=== PATIENT | female | born 1960 | race Caucasian/White ===

== ENCOUNTER 2019-08-23 14:19 | Outpatient (CLI) | payer OTHER, SELFPAY ==
[2019-08-23 15:13] LABS: Basophils Percent Auto 0.7 % (0.2-1.2); Eosinophils Absolute Auto 0.1 K/mm3 (0-0.3); Eosinophils Percent Auto 0.9 % (0-4.4); Hematocrit 38.1 % (37.0-47.0); Hemoglobin 12.3 g/dL (12.0-15.0); Immature Granulocyte Absolute 0.01 K/mm3 (0.00-0.031); Immature Granulocyte Percent A 0.2 % (0-0.5); Lymphocytes Absolute Auto 1.62 K/mm3 (0.9-3.2); Lymphocytes Percent Auto 30.1 % (18.3-44.2); Mean Corpuscular HGB Conc 32.3 g/dl (32-36); Mean Corpuscular Hemoglobin 30.4 pg (26-34); Mean Corpuscular Volume 94.3 fl (80-100); Mean Platelet Volume 10.9 fl (7.4-10.4); Monocytes Absolute Auto 0.6 K/mm3 (0.1-0.6); Monocytes Percent Auto 11.7 % (2.6-8.5); Neutrophils Percent Auto 56.4 % (45.5-73.1); Platelet Count Result 232 k/mm3 (150-375); Red Blood Count 4.04 M/mm3 (4.2-5.4); Red Cell Distribution Width 12.6 % (11.5-14.5); White Blood Count 5.4 K/mm3 (4.5-10.0)
[2019-08-23 15:30] LABS: Alanine Aminotransferase 16 U/L (4-35); Albumin Level 4.3 g/dL (3.5-5.1); Alkaline Phosphatase 58 U/L (38-126); Aspartate Amino Transferase 22 U/L (14-36); Bilirubin,Total 0.4 mg/dL (0.2-1.3); Blood Urea Nitrogen 8 mg/dL (7-17); Calcium 8.8 mg/dL (8.4-10.2); Carbon Dioxide 29 mmol/L (22-30); Chloride 99 mmol/L (98-107); Cholesterol 165 mg/dL (0-200); Estimated Glomerular Filt Rate > 60; Glucose 81 mg/dL (65-105); HDL Direct 84 mg/dL; Potassium 3.7 mmol/L (3.4-5.0); Sodium 135 mmol/L (137-145); Triglycerides 53 mg/dL (<150)
[2019-08-23 15:41] LABS: LDL Cholesterol Direct 64 mg/dL
[2019-08-23 16:23] LABS: Vitamin D 25 Hydroxy 37.5 ng/mL
[2019-08-23 16:32] LABS: Folic Acid 10.3 ng/mL (2.76->20)
== END 2019-08-23 14:20 | disposition home or self-care (01) ==
PROVIDERS: PCP Family Medicine; Visit Provider Nurse Practitioner
DX: R53.83 Other fatigue (principal); I10 Essential (primary) hypertension; E53.8 Deficiency of other specified B group vitamins; E78.5 Hyperlipidemia, unspecified; E55.9 Vitamin D deficiency, unspecified
CPT/HCPCS: 36415; 80053; 80061; 82306; 82607; 82746; 85025

== ENCOUNTER 2019-09-11 07:56 | Outpatient (CLI) | payer OTHER, SELFPAY ==
--- NOTE | ~2019-09-11 | DEXA_ITS ---
Bone Density Report Name: Amanda Becerra Age: 59 Sex: Female Ethnicity: White Date of : 1960 Indication: postmenopausal osteoporosis; monitoring treatment; height loss; cancer; hysterectomy; Referring Provider: Kristina Rivera Study: Bone densitometry was performed. Exam Date: September 11, 2019 Accession number: [id number] Bone Density: Region BMD T-score Z-score Classification AP Spine (L1-L4) 0.651 -3.6 -2.2 Osteoporosis Femoral Neck (Left) 0.603 -2.2 -1.0 Osteopenia Total Hip (Left) 0.809 -1.1 -0.2 Osteopenia Total Hip Bilateral Avg 0.784 -1.3 -0.4 Osteopenia Femoral Neck (Right) 0.551 -2.7 -1.4 Osteoporosis Total Hip (Right) 0.757 -1.5 -0.6 Osteopenia World Health Organization criteria for BMD impression classify patients as: Normal (T-score at or above -1.0), Osteopenia (T-score between -1.0 and -2.5), or Osteoporosis (T-score at or below -2.5). 10-year Fracture Risk: FRAX not reported because: Some T-score for Spine Total or Hip Total or Femoral Neck at or below -2.5 Treated for osteoporosis Previous Exams: Region Exam Age BMD T-score BMD Change BMD Change Date g/cm2 vs Baseline vs Previous AP Spine(L1-L4) 09/11/2019 59 0.651 -3.6 -0.059(-8.2%)* -0.059(-8.2%)* 07/15/2016 56 0.710 -3.1 Total Hip(Left) 09/11/2019 59 0.809 -1.1 -0.028(-3.4%)* -0.028(-3.4%)* 07/15/2016 56 0.837 -0.9 Total Hip(Right) 09/11/2019 59 0.757 -1.5 -0.043(-5.4%)* -0.043(-5.4%)* 07/15/2016 56 0.800 -1.2 *Denotes significance at 95% confidence level, LSC for AP Spine = 0.022 g/cm2, LSC for Total Hip = 0.027 g/cm2 Clinical Information Provided by Patient: Is being treated for osteoporosis Has used the following medications: Fosamax (i.e. alendronate), Vitamin D, Calcium Has the following medical conditions: Cancer, Hysterectomy Patient maximum height was 64.0 Menopause Age: 43 Does not regularly consume dairy products Drinks caffeinated beverages Onset of menses at age 12 Number of children 3 Impression: The patient has osteoporosis, based on the Total Spine T-score. The BMD for the AP Spine(L1-L4) decreased, changing by -8.2% since the last DXA exam. The BMD for the Total Hip(Left) decreased, changing by -3.4% since the last DXA exam. The BMD for the Total Hip(Right) decreased, changing by -5.4% since the last DXA exam. Discussion: SIGNIFICANT BONE LOSS OBSERVED. Adherence to therapy (including calcium and vitamin D intake) should be assessed. If compli
--- NOTE | ~2019-09-11 | MM_ITS ---
EXAMINATION: MM screening [facility] w joshua HISTORY: Screening mammogram TECHNIQUE: Craniocaudal and mediolateral oblique 3-D tomosynthesis images were obtained and synthetic 2-D images were generated. CAD analysis was submitted and interpreted. COMPARISON: 07/15/2016 BREAST PARENCHYMAL COMPOSITION: There are scattered areas of fibroglandular density. FINDINGS: There is no evidence of suspicious mass, calcification, or architectural distortion to sugg est malignancy in either breast. There has been no suspicious interval change. IMPRESSION: 1. No mammographic evidence of malignancy. 2. Recommend routine screening mammography in one year. BI-RADS Category 1: Negative Reviewed, dictated and finalized at location A.
== END 2019-09-11 07:57 | disposition home or self-care (01) ==
LOC: ANHIMG 07:58
PROVIDERS: PCP Family Medicine; Visit Provider Nurse Practitioner
DX: Z12.31 Encounter for screening mammogram for malignant neoplasm of breast (principal); Z78.0 Asymptomatic menopausal state; M81.0 Age-related osteoporosis without current pathological fracture; M85.852 Other specified disorders of bone density and structure, left thigh; M85.851 Other specified disorders of bone density and structure, right thigh
CPT/HCPCS: 77063; 77067; 77080

== ENCOUNTER 2021-12-07 14:55 | Outpatient (CLI) | payer OTHER, SELFPAY ==
--- NOTE | ~2021-12-07 | MM_ITS ---
EXAMINATION: MM screening [facility] BI w joshua HISTORY: Screening TECHNIQUE: Craniocaudal and mediolateral oblique 3-D tomosynthesis images were obtained and synthetic 2-D images were generated. CAD analysis was submitted and interpreted. COMPARISON: Comparison to multiple prior studies sequentially, with oldest reviewed study dated 08/2016. BREAST PARENCHYMAL COMPOSITION: There are scattered areas of fibroglandular density. FINDINGS: There is no evidence of suspicious mass, calcification, or architectural distortion to sugg est malignancy in either breast. There has been no suspicious interval change. IMPRESSION: 1. No mammographic evidence of malignancy. 2. Recommend routine screening mammography in one year. BI-RADS Category 1: Negative Reviewed, dictated and finalized at location A.
== END 2021-12-07 14:56 | disposition home or self-care (01) ==
LOC: ANHIMG 14:58
PROVIDERS: PCP Family Medicine; Visit Provider Nurse Practitioner Family
DX: Z12.31 Encounter for screening mammogram for malignant neoplasm of breast (principal)
CPT/HCPCS: 77063; 77067

== ENCOUNTER → 2022-02-10 15:47 | Outpatient (CLI) | payer OTHER, SELFPAY ==
--- NOTE | ~2022-02-10 | DEXA_ITS ---
Bone Density Report Name: MARJORIE LAGUNA Age: 61 Sex: Female Ethnicity: White Date of : 1960 Indication: postmenopausal; screening for osteoporosis; prior fracture; seizure disorder; hysterectomy; Referring Provider: Gabby Wu Study: Bone densitometry was performed. Exam Date: February 10, 2022 Accession number: [id number] Bone Density: Region BMD T-score Z-score Classification AP Spine (L1-L4) 0.698 -3.2 -1.6 Osteoporosis Femoral Neck (Left) 0.610 -2.1 -0.8 Osteopenia Total Hip (Left) 0.783 -1.3 -0.3 Osteopenia Femoral Neck (Right) 0.555 -2.6 -1.3 Osteoporosis Total Hip (Right) 0.762 -1.5 -0.4 Osteopenia Total Hip Mean 0.773 -1.4 -0.4 Osteopenia World Health Organization criteria for BMD impression classify patients as: Normal (T-score at or above -1.0), Osteopenia (T-score between -1.0 and -2.5), or Osteoporosis (T-score at or below -2.5). 10-year Fracture Risk: FRAX not reported because: Some T-score for Spine Total or Hip Total or Femoral Neck at or below -2.5 Treated for osteoporosis Clinical Information Provided by Patient: Has had a low trauma fracture Smokes Has 3 or more alcoholic drinks per day Is being treated for osteoporosis Has used the following medications: Fosamax (i.e. alendronate), Vitamin D, Calcium Has the following medical conditions: Any Seizure Disorders, Hysterectomy, HX OF CERVICAL CA -2003 Patient maximum height was 64.0 Menopause Age: 43 Does not regularly consume dairy products Drinks caffeinated beverages Onset of menses at age 13 Number of children 3 Impression: The patient has established osteoporosis, based on the Total Spine T-score and the existence of a prior fracture. The patient has risk factors, including: smoking, excessive alcohol use, previous fracture. Discussion: It is important to ask patients whether they are taking their medications and to encourage continued and appropriate compliance with their osteoporosis therapies to reduce fracture risk. It is also important to review their risk factors and encourage appropriate calcium and vitamin D intakes, exercise, fall prevention and other lifestyle measures. Follow-Up: Consider a repeat BMD and Vertebral Fracture Assessment (VFA) exam in 2 years or sooner if medically necessary, to reassess this patient's status. Reported by: [facility] on 02/10/2022 4:54:00 PM. Reviewed, dictated and finalized at location A. [facility]
== END ==
PROVIDERS: PCP Nurse Practitioner Family; Visit Provider Nurse Practitioner Family
DX: Z78.0 Asymptomatic menopausal state (principal); M81.0 Age-related osteoporosis without current pathological fracture; M85.852 Other specified disorders of bone density and structure, left thigh; M85.851 Other specified disorders of bone density and structure, right thigh
CPT/HCPCS: 77080

== ENCOUNTER 2022-02-28 09:44 | Outpatient (CLI) | payer OTHER, SELFPAY ==
[2022-02-28 20:32] LABS: Hematocrit 36.7 % (37.0-47.0); Hemoglobin 11.5 g/dL (12.0-15.0); Mean Corpuscular HGB Conc 31.3 g/dl (32-36); Mean Corpuscular Hemoglobin 33.5 pg (26-34); Mean Platelet Volume 11.4 fl (7.4-10.4); Platelet Count Result 182 k/mm3 (150-375); Red Blood Count 3.43 M/mm3 (4.2-5.4); Red Cell Distribution Width 13.5 % (11.5-14.5); White Blood Count 6.2 K/mm3 (4.5-10.0)
[2022-02-28 20:57] LABS: LDL Cholesterol Direct 48 mg/dL
[2022-02-28 21:05] LABS: Alanine Aminotransferase 32 U/L (6-35); Albumin Level 4.4 g/dL (3.5-5.1); Alkaline Phosphatase 59 U/L (38-126); Anion Gap 11 mmol/L (8-16); Aspartate Amino Transferase 60 U/L (14-36); Bilirubin,Total 0.4 mg/dL (0.2-1.3); Blood Urea Nitrogen 7 mg/dL (7-17); Calcium 9.2 mg/dL (8.4-10.2); Carbon Dioxide 28 mmol/L (22-30); Chloride 100 mmol/L (98-107); Cholesterol 214 mg/dL (0-200); Estimated Glomerular Filt Rate > 60; Glucose 83 mg/dL (65-110); Potassium 4.1 mmol/L (3.4-5.0); Sodium 139 mmol/L (137-145); Triglycerides 98 mg/dL (<150)
[2022-02-28 21:14] LABS: Thyroid Stimulating Hormone 0.695 uIU/mL (0.465-4.680)
[2022-02-28 21:21] LABS: Vitamin D 25 Hydroxy 63.5 ng/mL
[2022-02-28 21:48] LABS: Band Neutrophils Percent 5 % (0-6); Lymphocytes Absolute Manual 1.48 K/mm3 (1.1-4.5); Monocytes Absolute Manual 0.24 K/mm3 (0.1-0.90); Monocytes Percent Manual 4 % (3-9); Myelocytes Percent 1 %; Neutrophils Absolute Manual 4.27 K/mm3 (1.7-7.2); Neutrophils Percent Manual 64 % (46-73); Promyelocytes Percent 2 %; Total Cells Counted 100
[2022-02-28 21:49] LABS: Platelet Estimate Adequate (Adequate)
[2022-02-28 21:50] LABS: Hypochromasia 1+ (NORMAL)
[2022-02-28 21:51] LABS: Stomatocytes 1+ (NORMAL)
[2022-02-28 22:18] LABS: HDL Direct 149 mg/dL
== END 2022-02-28 09:45 | disposition home or self-care (01) ==
LOC: ANHGOSHLAB 09:46
PROVIDERS: PCP Nurse Practitioner Family; Visit Provider Nurse Practitioner Family
DX: R53.83 Other fatigue (principal); E55.9 Vitamin D deficiency, unspecified; I10 Essential (primary) hypertension; E78.5 Hyperlipidemia, unspecified
CPT/HCPCS: 36415; 80053; 80061; 82306; 84443; 85025

== ENCOUNTER 2022-03-28 11:17 | Outpatient (CLI) | payer OTHER, SELFPAY ==
[2022-03-28 20:11] LABS: Alanine Aminotransferase 22 U/L (6-35); Albumin Level 4.3 g/dL (3.5-5.1); Alkaline Phosphatase 49 U/L (38-126); Anion Gap 11 mmol/L (8-16); Aspartate Amino Transferase 28 U/L (14-36); Bilirubin,Total 0.2 mg/dL (0.2-1.3); Blood Urea Nitrogen 6 mg/dL (7-17); Calcium 9.1 mg/dL (8.4-10.2); Carbon Dioxide 28 mmol/L (22-30); Chloride 97 mmol/L (98-107); Estimated Glomerular Filt Rate > 60; Glucose 85 mg/dL (65-110); Potassium 3.6 mmol/L (3.4-5.0); Sodium 136 mmol/L (137-145)
== END 2022-03-28 11:18 | disposition home or self-care (01) ==
LOC: ANHGOSHLAB 11:19
PROVIDERS: PCP Nurse Practitioner Family; Visit Provider Nurse Practitioner Family
DX: R74.01 Elevation of levels of liver transaminase levels (principal)
CPT/HCPCS: 36415; 80053

== ENCOUNTER 2023-01-02 15:47 | Inpatient (IN) | payer OTHER, SELFPAY ==
[2023-01-02] VITALS (13 sets, daily range): BP systolic 85–117; BP diastolic 53–75; PULSE 71–94; RESP 14–19; TEMP 36.4–36.5; O2SAT 97–100; BMI 21.4
--- NOTE | ~2023-01-02 | CT_ITS ---
Noncontrast CT scan of the cervical spine Technique: Multiple contiguous axial [address] images of the cervical spine were obtained and rec onstructed in 2D sagittal and coronal planes on the acquisition scanner. Dose reduction technique was used on this scan by utilizing automated exposure control, adjustment of the mA and/or kV according to patient size. The dose-length product (DLP) was 141.17 mGy-cm. Clinical History: Pain Findings: No fractures or subluxation. There is advanced degenerative disc narrowing at C3-C4, C4-C5 , C5-C6, and C6-C7, with uncovertebral degenerative changes throughout these levels. There are small disc osteophyte complexes at C3-C4, C4-C5, C5-C6, and C6-C7. No prevertebral soft tissue swelling. Impression: No fracture or subluxation of the cervical spine. Degenerative change, as above. Reviewed, dictated and finalized at [facility]. Impression: No fracture or subluxation of the cervical spine. Degenerative change, as above.
--- NOTE | ~2023-01-02 | US_ITS ---
EXAMINATION: US carotid duplex BI DATE: 01/03/2023 10:08 INDICATION: Syncope. TECHNIQUE: Grayscale, color Doppler, and pulsed Doppler images of the cervical carotid arteries were obtained. The degree of vessel stenosis is placed in one of the following categories: normal, <50%, 5 0-69%, >=70% but less than near-occlusion, near-occlusion, or total occlusion. Note that percent sten osis relative to normal distal artery lumen diameter is indirectly measured from velocity measurement s as described by Fabricio, et al. Radiology 2003; 229:340-346. COMPARISON: None. FINDINGS: RIGHT: The right common carotid artery (CCA) peak systolic velocity (PSV) is 76 cm/s. The right internal car otid artery (ICA) PSV is 57 cm/s. The right ICA end-diastolic velocity (EDV) is 21 cm/s. The right IC A/CCA PSV ratio is 0.8. Grayscale and color Doppler images yield an estimate of <50% diameter reducti on from plaque in the ICA. The external carotid artery (ECA) PSV is 70 cm/s. There is antegrade flow in the right vertebral artery. LEFT: The left CCA PSV is 73 cm/s. The left ICA PSV is 54 cm/s. The left ICA EDV is 18 cm/s. The left ICA/C CA PSV ratio is 0.7. Grayscale and color Doppler images yield an estimate of <50% diameter reduction from plaque in the ICA. The ECA PSV is 60 cm/s. There is antegrade flow in the left vertebral artery. IMPRESSION: 1. <50% stenosis in the right internal carotid artery. 2. <50% stenosis in the left internal carotid artery. Reviewed, dictated and finalized at location A.
--- NOTE | ~2023-01-02 | CT_ITS ---
Non-contrast Head CT History: Altered mental status, status post fall Technique: Axial non-contrast imaging of the brain was performed. Dose reduction technique was used on this scan by utilizing automated exposure control and iterative reconstruction technique. The dose -length product (DLP) was 681.00 mGy-cm. Findings: There is no evidence of intracranial hemorrhage, mass lesion, or acute infarct. Brain par enchyma appears normal. The ventricles and subarachnoid spaces are normal in size. The calvarium ap pears normal. The visualized paranasal sinuses and mastoid air cells are clear. Impression: No significant abnormality seen. Reviewed, dictated and finalized at location . Impression: No significant abnormality seen.
--- NOTE | ~2023-01-02 | XR_ITS ---
Portable chest x-ray Comparison: 08/23/2015 Clinical History: Status post fall Findings: Lungs are clear, without focal consolidation or pleural effusion. Cardiomediastinal silho uette is stable. Bones and soft tissues are unremarkable. Impression: Normal chest. Reviewed, dictated and finalized at [facility]. Impression: Normal chest.
[2023-01-02 16:49] LABS: Basophils Percent Auto 0.4 % (0.2-1.2); Eosinophils Percent Auto 0.6 % (0-4.4); Hematocrit 31.6 % (37.0-47.0); Hemoglobin 10.9 g/dL (12.0-15.0); Immature Granulocyte Absolute 0.02 K/mm3 (0.00-0.031); Immature Granulocyte Percent A 0.4 % (0-0.5); Lymphocytes Absolute Auto 1.79 K/mm3 (0.9-3.2); Lymphocytes Percent Auto 33.3 % (18.3-44.2); Mean Corpuscular HGB Conc 34.5 g/dl (32-36); Mean Corpuscular Hemoglobin 34.1 pg (26-34); Mean Corpuscular Volume 98.8 fl (80-100); Monocytes Absolute Auto 0.9 K/mm3 (0.1-0.6); Monocytes Percent Auto 15.8 % (2.6-8.5); Neutrophils Absolute Auto 2.7 K/mm3 (1.3-6.7); Neutrophils Percent Auto 49.5 % (45.5-73.1); Platelet Count Result 230 k/mm3 (150-375); Red Cell Distribution Width 12.7 % (11.5-14.5); White Blood Count 5.4 K/mm3 (4.5-10.0)
[2023-01-02] MEDS: SODIUM CHLORIDE 0.9% IV 2,000 ML 999 ML IV CONT (16:50)
[2023-01-02 17:01] LABS: Partial Thromboplastin Time 26.3 SECONDS (22.3-36.8); Prothrombin Time 13.1 Seconds (11.1-14.7)
[2023-01-02 17:12] LABS: Alanine Aminotransferase 67 U/L (6-35); Albumin Level 4.5 g/dL (3.5-5.1); Alkaline Phosphatase 62 U/L (38-126); Anion Gap 20 mmol/L (8-16); Aspartate Amino Transferase 121 U/L (14-36); Bilirubin,Total 0.8 mg/dL (0.2-1.3); Blood Urea Nitrogen 14 mg/dL (7-17); Calcium 8.4 mg/dL (8.4-10.2); Carbon Dioxide 16 mmol/L (22-30); Chloride 83 mmol/L (98-107); Estimated CRCL calculation 41 ml/min; Estimated Glomerular Filt Rate 50; Glucose 85 mg/dL (65-110); Potassium 3.8 mmol/L (3.4-5.0); Sodium 119 mmol/L (137-145)
[2023-01-02 17:13] LABS: NT Pro B Type Natriuretic Pept 250 pg/mL (19.9-100); Troponin I < 0.012 ng/mL (0.000-0.034)
[2023-01-02 17:13] LABS: Lactic Acid Reflex 3.9 mmol/L (0.7-2.0)
--- NOTE | 2023-01-02 18:00 | ED.FALL ---
HPI - Fall General Chief Complaint: Fall Stated Complaint: fall/syncopy/hithead Time Seen by Provider: 01/02/23 16:01 History of Present Illness HPI Narrative: Pt says her dog pulled her and she fell and struck head on porch. Pt said she may have gotten knocked out. Pt admits to drinking bottle of wine today. Pt has mild GARCIA but denies neck pain. Related Data Home Medications Medication Instructions Recorded Confirmed levetiracetam 500 mg tablet 500 mg PO Q12H 08/23/21 02/28/22 melatonin 5 mg capsule 5 mg PO QHS 03/28/22 vitamin B complex (B 1 tablet PO DAILY 03/28/22 Complex-Vitamin B12 tablet) Allergies Allergy/AdvReac Type Severity Reaction Status Date / Time hydrochlorothiazide Allergy Severe hyponatremi Verified 01/02/23 15:59 a Penicillins Allergy Severe Seizure Verified 01/02/23 15:59 zonisamide AdvReac Intermediate hands Verified 01/02/23 15:59 peeling and increased anxiety Review of Systems Review of Systems: All systems reviewed & are unremarkable except as noted in HPI and below PMFSH Past Medical History Medical History (Reviewed 07/19/22 @ 09:59 by Sandra Martinez [facility]) Age-related osteoporosis without current pathological fracture Alcohol abuse Anxiety Depression 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 Essential (primary) hypertension Fracture of left clavicle GERD without esophagitis History of cervical cancer Hyperlipidemia Insomnia Obstructive sleep apnea treated with continuous positive airway pressure (CPAP) Vitamin D deficiency Family History Family History (Reviewed 07/19/22 @ 09:59 by Sandra Martinez [facility]) Mother Family history of arthritis Father Family history of heart disease in male family member before age 55 Other Diabetes mellitus Social History Social History (Updated 09/08/22 @ 14:29 by Janie Jerry [facility]) Social History: Patient is , she designates her Perry as a surrogate decision maker. They have 3 adult children, 2 boys and 1 girl. 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 Years smoked: 30 Smoking status: Former smoker Tobacco type: e-cigarettes/vaping Alcohol intake: current Substance use: never Substance use type: does not use Lack of Transportation: YES Lack of Food: Never True Current Housing: I Have Housing Concerned About Future Housing: No Difficulty Paying Gas/Electric Bills: No Difficulty Paying for Meds: No Currently Unemployed: YES Education: Bachelor's Degree Difficulty w/ Childcare or Family Care: No Living arrangements: with family Occupation/Education: retired Gender identity (if verbalized by the patient): Female Sexual Orientation (if Verbalized by the Patient): Straight or Heterosexual Spiritual care concerns: No Exam Const: General: healthy appearing and no acute distress Nutritional Appearance: well nourished Orientation/consciousness: patient oriented x3 Limitations: no limitations HENMT: Head: normal to inspection Throat: posterior oropharynx normal Eyes: Conjunctivae: conjunctivae normal Pupils: Equal, round and reactive pupils present EOM: EOMs intact bilaterally Neck: Neck: normal visual inspection and no meningeal signs Resp: Effort & Inspection: normal respiratory effort Auscultation: clear to auscultation bilaterally Cardio: Rate: regular rate Rhythm: regular rhythm Skin: General skin exam: normal color Rashes: no rashes Wounds: no wounds Neuro: General: patient oriented x3, moves all extremities, no meningeal signs, no focal motor deficits and CN's II-XI intact bilaterally Cranial nerves: Yes Nystagmus not present Speech: normal speech Extrem: General: normal to inspection and no clubbing, cyanosis or edema Psych: Mental Status: mental status grossly normal Affect: normal affect Attitude: cooperative Course Vital Signs Vital signs: Vital Signs
--- NOTE | 2023-01-02 18:47 | PM.IMHP ---
H&P: HPI History of Present Illness Date/Time: 01/02/23 18:45 Chief Complaint: Fall. Narrative: This is a 62-year-old female with longstanding history of alcohol abuse, depression with history of suicide attempt in October 2022, anxiety, hypertension, epilepsy, GERD, and sleep apnea presented to the emergency department via EMS from home for evaluation after a fall. The patient provides the following history. Not long prior to arrival she was out on the porch and reports that her large dog pulled her, causing her to fall and hit her head. Emergency services were contacted and on their arrival she was hypotensive. EMS reports she had several episodes were she had brief losses of consciousness and her blood pressures were quite low. She does not recall feeling lightheaded or dizzy prior to the fall. She also denies chest pain, pleuritic pain, racing heart, lightheadedness, nausea, vomiting, diarrhea, and dysuria. She has not had a seizure for quite some time and does not believe she had a seizure today. On arrival to the ED her blood pressure was 85/63 and she received 2 L normal saline bolus. Labs were significant for sodium of 119, chloride 83, carbon dioxide 16, anion gap 20, creatinine 1.10, lactic acid 3.9. With further questioning she admitted to drinking a bottle of wine today which is about what she typically consumes. She has not been drinking much in the way of liquids aside from alcohol and she looks dry on exam. She has been started on IV fluids and she is being admitted in this setting for further treatment. Later on in the evening and received a call from the patient's nurse. Hartley suicide scale indicated that she was at high risk and she was transferred to ICU for close monitoring with a sitter at bedside. I re-evaluated the patient later and she admits that she attempted suicide several months ago by trying to cut her wrists. She was not hospitalized for that. She has had no further suicidal ideations or gestures and she has no plans for suicide. Review of Systems Review of Systems: Twelve systems were reviewed. She went to rehab in [place] earlier this year and unfortunately a week into her treatment her mother and she had to come home early. She started drinking again approximately 1 week thereafter. She reportedly had a suicide attempt not long thereafter which she attributed to her mother's . She continues to have issues with anxiety and depression but she has no active thoughts of suicide nor did she have a plan. 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 Essential (primary) hypertension Fracture of left clavicle GERD without esophagitis History of cervical cancer History of suicide attempt (10/2022) Hyperlipidemia Insomnia Obstructive sleep apnea treated with continuous positive airway pressure (CPAP) Vitamin D deficiency Surgical History Surgical History (Updated 01/03/23 @ 15:16 by Génesis Hein PA-C) History of hysterectomy Family History Family History (Reviewed 07/19/22 @ 09:59 by Sandra Martinez [facility]) Mother Family history of arthritis Father Family history of heart disease in male family member before age 55 Other Diabetes mellitus Social History Social History (Updated 01/03/23 @ 15:17 by Génesis Hein PA-C) Social History: Surrogate medical decision maker: Perry Becerra, spouse. Code status: Full code. Smoking packs per day: 1 Smoking cigarettes per day: 20.0 Years smoked: 30 Smoking pack-years: 30.00 Smoking status: Former smoker Tobacco type: cigarettes Alcohol intake: current Drinks per week: 7 Substance use: never Substance use type: does not use Lack of Transportation: No Lack of Food: Never
[2023-01-02 19:59] LABS: Reflex Lactic Acid Yes or No Add Lactic
[2023-01-02 20:24] LABS: Anion Gap 14 mmol/L (8-16); Blood Urea Nitrogen 12 mg/dL (7-17); Calcium 8.6 mg/dL (8.4-10.2); Carbon Dioxide 22 mmol/L (22-30); Chloride 88 mmol/L (98-107); Estimated CRCL calculation 45 ml/min; Estimated Glomerular Filt Rate 56; Glucose 87 mg/dL (65-110); Lactic Acid 2.9 mmol/L (0.7-2.0); Potassium 4.5 mmol/L (3.4-5.0); Sodium 124 mmol/L (137-145)
--- NOTE | 2023-01-02 20:35 | ADMGEN ---
This patient, Amanda Becerra, was admitted to IMU Room 204-01. Patient/family oriented to hospital policies and general routines including ID bracelet, bed and alarms, visiting hours, pain management, procedures, bathroom and other care routines, personal items, smoking policy, room service/diet, and visiting hours. Information on how to activate the Rapid Response Team has been discussed. Patient/Family are encouraged to report perceived risks to care and to ask questions if they do not understand what they are told or what they should do.
[2023-01-02] MEDS: SODIUM CHLORIDE 0.9% IV 1,000 ML 125 ML IV CONT (20:50)
[2023-01-02 21:10] LABS: Thyroid Stimulating Hormone Reflex 0.559 uIU/mL (0.465-4.68)
[2023-01-02 22:51] LABS: Creatinine Urine 25.7 mg/dL
[2023-01-02 22:56] LABS: Urea Random Urine 178 MG/DL
--- NOTE | 2023-01-02 23:00 | PC.NURSE ---
This patient, Amanda Becerra, was transferred to ICU 4 on 01/02/23 at 2258. Personal belongings sent with patient. High suicide risk policy in place. Report given to TOBI Barreto. Appropriate documentation sent with patient.
[2023-01-02 23:04] LABS: Sodium Urine Random 45 meq/L
[2023-01-02 23:29] LABS: Sodium 125 mmol/L (137-145)
[2023-01-02 23:39] LABS: Lactic Acid Reflex 4.4 mmol/L (0.7-2.0)
[2023-01-03] VITALS (15 sets, daily range): BP systolic 104–131; BP diastolic 77–90; PULSE 64–84; RESP 13–25; TEMP 36.5–36.9; O2SAT 97–99
--- NOTE | 2023-01-03 00:02 | ECHO_ITS ---
Patient Info Name: Amanda Becerra Age: 62 years : 1960 Gender: Female Ht: 64 in Wt: 125 lbs BSA: 1.60 m2 HR: 69 bpm BP: 131 / 77 mmHg Heart Rhythm: Sinus Rhythm Technical Quality: Good Exam Date: 01/03/2023 7:54 AM Exam Location: [facility] Card Pulmonary Patient Status: Inpatient Admit Date: 01/03/2023 Staff Ordering Physician: Génesis Hein PA-C Nuclear Scientist: Jacquelyn Simmons RDCS Attending Provider: Mallory Abdi MD Referring Physician: Angel Luis DSOUZA; Exam Type: CA echo doppler color flow Study Info Indications R55 - Syncope and collapse Complete two-dimensional, color flow and Doppler transthoracic echocardiogram is performed. Summary 1. Complete two-dimensional, color flow and Doppler transthoracic echocardiogram is performed. 2. Left ventricular chamber dimension is normal. 3. Ventricular septum is mildly sigmoid shaped. No LVOT obstruction. 4. Left ventricular systolic function is normal, estimated at 60-65%. 5. The left ventricular diastolic function is grade II diastolic dysfunction. 6. E/e' 9 is minimally elevated. 7. There is mild aortic valve sclerosis. 8. There is mild aortic valve regurgitation. 9. There is trace tricuspid valve regurgitation. 10. No pulmonary hypertension, estimated pulmonary arterial systolic pressure is 28 mmHg. Left Ventricle E/e' 9 is minimally elevated. Ventricular septum is mildly sigmoid shaped. No LVOT obstruction. Left ventricular chamber dimension is normal. Left ventricular systolic function is normal, estimated at 60-65%. The left ventricular diastolic function is grade II diastolic dysfunction. Right Ventricle Right ventricular systolic function is normal and with normal TAPSE 2.6 cm. Right ventricular chamber dimension is normal. Left Atria Left atrial chamber dimension is normal. Right Atria Right atrial chamber dimension is normal. Aortic Valve The aortic valve is trileaflet. There is mild aortic valve sclerosis. There is no aortic valve stenosis. There is mild aortic valve regurgitation. Pulmonic Valve There is no pulmonic regurgitation. Mitral Valve There is no mitral valve stenosis. There is no mitral valve regurgitation. Tricuspid Valve There is trace tricuspid valve regurgitation. No pulmonary hypertension, estimated pulmonary arterial systolic pressure is 28 mmHg. Pericardium/Pleural There is no pericardial effusion. Inferior Vena Cava Normal inferior vena cava with >50% collapse upon inspiration consistent with normal right atrial pressure, 5 mmHg. Aorta The aortic root size at the sinus of Valsalva is normal. Left Ventricular Outflow Tract Name Value Normal LVOT Doppler LVOT Peak Gradient 9 mmHg LVOT Mean Gradient 3 mmHg LVOT VTI 28 cm LVOT VTI/AV VTI Ratio 1.0 Pulmonic Valve Name Value Normal RVOT Doppler RVOT Peak Gradient 2 mmHg PV Doppler
[2023-01-03] MEDS: chlordiazePOXIDE (*CRX) 25 MG CAPSULE PO ×5 (00:32→23:34)
[2023-01-03] MEDS: levETIRAcetam 500 MG TABLET PO ×3 (00:32→22:08)
[2023-01-03] MEDS: MELATONIN 5 MG TABLET PO ×2 (00:32→23:34)
[2023-01-03 04:36] LABS: Hematocrit 31.3 % (37.0-47.0); Hemoglobin 10.6 g/dL (12.0-15.0); Mean Corpuscular HGB Conc 33.9 g/dl (32-36); Mean Corpuscular Hemoglobin 33.8 pg (26-34); Mean Corpuscular Volume 99.7 fl (80-100); Mean Platelet Volume 9.5 fl (7.4-10.4); Platelet Count Result 176 k/mm3 (150-375); Red Blood Count 3.14 M/mm3 (4.2-5.4); Red Cell Distribution Width 12.7 % (11.5-14.5); White Blood Count 4.3 K/mm3 (4.5-10.0)
[2023-01-03 04:43] LABS: Alanine Aminotransferase 77 U/L (6-35); Albumin Level 4.1 g/dL (3.5-5.1); Alkaline Phosphatase 63 U/L (38-126); Anion Gap 6 mmol/L (8-16); Aspartate Amino Transferase 125 U/L (14-36); Blood Urea Nitrogen 13 mg/dL (7-17); Calcium 8.6 mg/dL (8.4-10.2); Carbon Dioxide 28 mmol/L (22-30); Chloride 91 mmol/L (98-107); Estimated CRCL calculation 45 ml/min; Estimated Glomerular Filt Rate 56; Glucose 89 mg/dL (65-110); Magnesium 2.1 mg/dL (1.6-2.3); Potassium 3.9 mmol/L (3.4-5.0); Sodium 125 mmol/L (137-145)
[2023-01-03] MEDS: FLUoxetine HCL 20 MG CAPSULE 60 MG PO (08:31)
[2023-01-03] MEDS: FLUTICASONE PROPIONATE 0.05% NA SPR 16 GM BTL (*BKC) 2 SPRAY NASAL (08:32)
[2023-01-03] MEDS: buPROPion HCL 75 MG TABLET PO (08:32)
[2023-01-03] MEDS: GABAPENTIN 300 MG CAPSULE PO ×3 (08:32→16:39)
[2023-01-03] MEDS: THIAMINE HCL 200 MG/2 ML VIAL 100 MG IV PUSH (08:32)
[2023-01-03] MEDS: VITAMIN B COMPLEX CAPSULE 1 CAP PO (08:32)
--- NOTE | 2023-01-03 14:30 | WPDPN ---
Progress Note: A&P Assessment and Plan (1) Syncope: Code(s): R55 - Syncope and collapse Status: Acute (2) Fall from ground level: Code(s): W18.30XA - Fall on same level, unspecified, initial encounter Status: Acute (3) Hyponatremia: Code(s): E87.1 - Hypo-osmolality and hyponatremia Status: Acute (4) Hypotension: Code(s): I95.9 - Hypotension, unspecified Status: Acute (5) Alcohol abuse: Code(s): F10.10 - Alcohol abuse, uncomplicated Status: Chronic Plan The patient presented to the emergency department via EMS from home for evaluation after a fall as detailed in HPI. Labs, imaging, EKG, and all reports were personally reviewed. Initially she told EMS that her dog pulled her and that caused her to fall however she was hypotensive on EMS arrival and she had several episodes of brief loss of consciousness. She may very well have had a syncopal episode causing the fall but he cannot say for certain. Seizure is a consideration as well though and while there is no evidence of tongue bite her initial labs showed a low serum carbon dioxide level. Her sodium is quite low which could be due to dehydration from poor oral intake in addition to low solute intake (she drinks alcohol and does not seem to take in much in the way of food) and hydrochlorothiazide use. She received 2 L normal saline in the ED with improvement in her sodium to 125. Hold further IV fluids for now; continue to monitor sodium levels closely. She will be monitor on telemetry overnight. Echocardiogram and carotid Doppler ultrasounds ordered for further evaluation. Initiate CIWA protocol. She is currently in the ICU as she is deemed to be a high risk for suicide given suicide attempt several months ago. 01/03/2023 interval history: Patient with history alcohol abuse and poor historian presented with a fall briefly and loss of conscious and presented with a hypertension being hydrated her clinical symptoms are improving will continue to monitor, patient also has a risk of suicide in the past patient has attempted, once patient is clinically stable will have a crisis team evaluate the patient and further recommendation to follow, will continue to monitor with CIWA protocol. Subjective Date/time seen: 01/03/23 14:30 Interval history: Fall. Narrative: This is a 62-year-old female with longstanding history of alcohol abuse, depression with history of suicide attempt in October 2022, anxiety, hypertension, epilepsy, GERD, and sleep apnea presented to the emergency department via EMS from home for evaluation after a fall. The patient provides the following history. Not long prior to arrival she was out on the porch and reports that her large dog pulled her, causing her to fall and hit her head. Emergency services were contacted and on their arrival she was hypotensive. EMS reports she had several episodes were she had brief losses of consciousness and her blood pressures were quite low. She does not recall feeling lightheaded or dizzy prior to the fall. She also denies chest pain, pleuritic pain, racing heart, lightheadedness, nausea, vomiting, diarrhea, and dysuria. She has not had a seizure for quite some time and does not believe she had a seizure today. On arrival to the ED her blood pressure was 85/63 and she received 2 L normal saline bolus. Labs were significant for sodium of 119, chloride 83, carbon dioxide 16, anion gap 20, creatinine 1.10 patient also lactic acid 3.9. With further questioning she admitted to drinking a bottle of wine today which is about what she typically consumes. She has not been drinking much in the way of liquids aside from alcohol and she looks dry on exam. She has been started on IV fluids and she is being admitted in this setting for further treatment. 01/03/2023 interval history: Patient with history alcohol abuse and poor historian presented with a fall briefly and loss of conscious and presented with a hypertens
[2023-01-03] MEDS: FLUoxetine HCL 20 MG CAPSULE PO (16:39)
[2023-01-03 21:28] LABS: Anion Gap 7 mmol/L (8-16); Blood Urea Nitrogen 18 mg/dL (7-17); Calcium 8.6 mg/dL (8.4-10.2); Carbon Dioxide 27 mmol/L (22-30); Chloride 91 mmol/L (98-107); Estimated CRCL calculation 45 ml/min; Estimated Glomerular Filt Rate 56; Glucose 69 mg/dL (65-110); Potassium 4.1 mmol/L (3.4-5.0); Sodium 125 mmol/L (137-145)
[2023-01-03] MEDS: SODIUM CHLORIDE 0.9% IV 500 ML 55 ML IV CONT (22:09)
[2023-01-03] MEDS: traZODone HCL 50 MG TABLET PO (23:34)
[2023-01-04] VITALS (13 sets, daily range): BP systolic 103–133; BP diastolic 74–95; PULSE 62–93; RESP 14–18; TEMP 36.1–36.9; O2SAT 94–98
[2023-01-04] MEDS: chlordiazePOXIDE (*CRX) 25 MG CAPSULE PO (05:51)
[2023-01-04 08:14] LABS: Anion Gap 8 mmol/L (8-16); Blood Urea Nitrogen 11 mg/dL (7-17); Calcium 8.5 mg/dL (8.4-10.2); Carbon Dioxide 26 mmol/L (22-30); Chloride 93 mmol/L (98-107); Estimated CRCL calculation 55 ml/min; Estimated Glomerular Filt Rate > 60; Glucose 84 mg/dL (65-110); Potassium 3.6 mmol/L (3.4-5.0); Sodium 127 mmol/L (137-145)
[2023-01-04] MEDS: FLUoxetine HCL 20 MG CAPSULE PO ×3 (08:36→16:28)
[2023-01-04] MEDS: GABAPENTIN 300 MG CAPSULE PO ×3 (08:36→16:28)
[2023-01-04] MEDS: VITAMIN B COMPLEX CAPSULE 1 CAP PO (08:37)
[2023-01-04] MEDS: levETIRAcetam 500 MG TABLET PO ×2 (08:37→21:07)
[2023-01-04] MEDS: THIAMINE HCL 200 MG/2 ML VIAL 100 MG IV PUSH (08:37)
[2023-01-04] MEDS: buPROPion HCL 75 MG TABLET PO (08:37)
[2023-01-04] MEDS: FLUTICASONE PROPIONATE 0.05% NA SPR 16 GM BTL (*BKC) 2 SPRAY NASAL (08:43)
[2023-01-04 16:15] LABS: Anion Gap 7 mmol/L (8-16); Blood Urea Nitrogen 11 mg/dL (7-17); Calcium 8.8 mg/dL (8.4-10.2); Carbon Dioxide 27 mmol/L (22-30); Chloride 95 mmol/L (98-107); Estimated CRCL calculation 49 ml/min; Estimated Glomerular Filt Rate > 60; Glucose 104 mg/dL (65-110); Sodium 129 mmol/L (137-145)
[2023-01-04] MEDS: ACETAMINOPHEN 325 MG TABLET 650 MG PO (16:28)
--- NOTE | 2023-01-04 16:52 | WPDPN ---
Progress Note: A&P Assessment and Plan (1) Syncope: Code(s): R55 - Syncope and collapse Status: Acute (2) Fall from ground level: Code(s): W18.30XA - Fall on same level, unspecified, initial encounter Status: Acute (3) Hyponatremia: Code(s): E87.1 - Hypo-osmolality and hyponatremia Status: Acute (4) Hypotension: Code(s): I95.9 - Hypotension, unspecified Status: Acute (5) Alcohol abuse: Code(s): F10.10 - Alcohol abuse, uncomplicated Status: Chronic Plan The patient presented to the emergency department via EMS from home for evaluation after a fall as detailed in HPI. Labs, imaging, EKG, and all reports were personally reviewed. Initially she told EMS that her dog pulled her and that caused her to fall however she was hypotensive on EMS arrival and she had several episodes of brief loss of consciousness. She may very well have had a syncopal episode causing the fall but she cannot say for certain. Seizure is a consideration as well though and while there is no evidence of tongue bite her initial labs showed a low serum carbon dioxide level. Her sodium is quite low which could be due to dehydration from poor oral intake in addition to low solute intake (she drinks alcohol and does not seem to take in much in the way of food) and hydrochlorothiazide use. She received 2 L normal saline in the ED with improvement in her sodium to 125. Hold further IV fluids for now and continue to monitor sodium levels closely. She will be monitored on telemetry overnight. Echocardiogram and carotid Doppler ultrasounds ordered for further evaluation. Initiate CIWA protocol. She is currently in the ICU as she is deemed to be a high risk for suicide given suicide attempt several months ago. On re-evaluation of the patient, she has not had suicidal thoughts since that attempt, she is not currently suicidal, and she has no plans for suicide. 01/04/2023 interval history: Patient with history alcohol abuse and poor historian presented with a fall briefly and loss of conscious and presented with a hypertension being hydrated her clinical symptoms are improving will continue to monitor, patient also has a risk of suicide in the past patient had attempted, and discussed with the patient patient does not have any intention of harming herself, her is also present in the and he agrees will take the suicidal precaution off, will continue to monitor,and further recommendation to follow, patient is seen by substance abuse rehab consulor and the of working with her, will continue to monitor with CIVA protocol. Subjective Date/time seen: 01/04/23 16:52 Interval history: Fall. Narrative: This is a 62-year-old female with longstanding history of alcohol abuse, depression with history of suicide attempt in October 2022, anxiety, hypertension, epilepsy, GERD, and sleep apnea presented to the emergency department via EMS from home for evaluation after a fall. The patient provides the following history. Not long prior to arrival she was out on the porch and reports that her large dog pulled her, causing her to fall and hit her head. Emergency services were contacted and on their arrival she was hypotensive. EMS reports she had several episodes were she had brief losses of consciousness and her blood pressures were quite low. She does not recall feeling lightheaded or dizzy prior to the fall. She also denies chest pain, pleuritic pain, racing heart, lightheadedness, nausea, vomiting, diarrhea, and dysuria. She has not had a seizure for quite some time and does not believe she had a seizure today. On arrival to the ED her blood pressure was 85/63 and she received 2 L normal saline bolus. Labs were significant for sodium of 119, chloride 83, carbon dioxide 16, anion gap 20, creatinine 1.10 patient also lactic acid 3.9. With further questioning she admitted to drinking a bottle of wine today which is about what she typically consumes.
[2023-01-04] MEDS: traZODone HCL 50 MG TABLET PO (21:07)
[2023-01-04] MEDS: MELATONIN 5 MG TABLET PO (21:07)
--- NOTE | 2023-01-04 23:10 | PC.NURSE ---
Patient arrived to room 333 via bed at this time. A/Ox3. Resp equal and non labored. Denies SOB. C/O still feeling dizzy. No edema noted. Mepitel one to left eyebrow. Lungs clear on RA. BS present x4 quads. Denies any dysuria.
--- NOTE | 2023-01-04 23:21 | PC.NURSE ---
Report given to RN. Patient to room 333. All belongings taken with patient.
[2023-01-05] VITALS: PULSE 67
[2023-01-05 04:00] VITALS: PULSE 67
[2023-01-05 06:00] VITALS: BP 138/71; PULSE 69; RESP 14; TEMP 35.8; O2SAT 99
[2023-01-05 07:02] LABS: Hematocrit 32.8 % (37.0-47.0); Hemoglobin 10.6 g/dL (12.0-15.0); Mean Corpuscular HGB Conc 32.3 g/dl (32-36); Mean Corpuscular Hemoglobin 33.9 pg (26-34); Mean Corpuscular Volume 104.8 fl (80-100); Mean Platelet Volume 9.7 fl (7.4-10.4); Platelet Count Result 157 k/mm3 (150-375); Red Blood Count 3.13 M/mm3 (4.2-5.4); Red Cell Distribution Width 12.9 % (11.5-14.5); White Blood Count 3.4 K/mm3 (4.5-10.0)
[2023-01-05 07:15] LABS: Anion Gap 4 mmol/L (8-16); Blood Urea Nitrogen 9 mg/dL (7-17); Calcium 8.8 mg/dL (8.4-10.2); Carbon Dioxide 32 mmol/L (22-30); Chloride 96 mmol/L (98-107); Estimated CRCL calculation 45 ml/min; Estimated Glomerular Filt Rate 56; Glucose 84 mg/dL (65-110); Magnesium 1.9 mg/dL (1.6-2.3); Potassium 3.8 mmol/L (3.4-5.0); Sodium 132 mmol/L (137-145)
[2023-01-05 08:02] VITALS: PULSE 70
[2023-01-05] MEDS: buPROPion HCL 75 MG TABLET PO (09:46)
[2023-01-05] MEDS: FLUoxetine HCL 20 MG CAPSULE PO (09:46)
[2023-01-05] MEDS: GABAPENTIN 300 MG CAPSULE PO (09:46)
[2023-01-05] MEDS: levETIRAcetam 500 MG TABLET PO (09:46)
[2023-01-05] MEDS: THIAMINE HCL 200 MG/2 ML VIAL 100 MG IV PUSH (09:47)
[2023-01-05] MEDS: VITAMIN B COMPLEX CAPSULE 1 CAP PO (09:47)
[2023-01-05] MEDS: ACETAMINOPHEN 325 MG TABLET 650 MG PO (09:50)
--- NOTE | 2023-01-05 11:50 | PM.DS ---
DS: Admitting Diagnosis Discharge Date 01/05/2023 Admitting Diagnosis Fall DS: Discharge Diagnosis Discharge Diagnosis (1) Syncope: Code(s): R55 - Syncope and collapse Status: Acute (2) Fall from ground level: Code(s): W18.30XA - Fall on same level, unspecified, initial encounter Status: Acute (3) Hyponatremia: Code(s): E87.1 - Hypo-osmolality and hyponatremia Status: Acute (4) Hypotension: Code(s): I95.9 - Hypotension, unspecified Status: Acute (5) Alcohol abuse: Code(s): F10.10 - Alcohol abuse, uncomplicated Status: Chronic Plan The patient presented to the emergency department via EMS from home for evaluation after a fall as detailed in HPI. Labs, imaging, EKG, and all reports were personally reviewed. Initially she told EMS that her dog pulled her and that caused her to fall however she was hypotensive on EMS arrival and she had several episodes of brief loss of consciousness. She may very well have had a syncopal episode causing the fall but she cannot say for certain. Seizure is a consideration as well though and while there is no evidence of tongue bite her initial labs showed a low serum carbon dioxide level. Her sodium is quite low which could be due to dehydration from poor oral intake in addition to low solute intake (she drinks alcohol and does not seem to take in much in the way of food) and hydrochlorothiazide use. She received 2 L normal saline in the ED with improvement in her sodium to 125. Hold further IV fluids for now and continue to monitor sodium levels closely. She will be monitored on telemetry overnight. Echocardiogram and carotid Doppler ultrasounds ordered for further evaluation. Initiate CIWA protocol. She is currently in the ICU as she is deemed to be a high risk for suicide given suicide attempt several months ago. On re-evaluation of the patient, she has not had suicidal thoughts since that attempt, she is not currently suicidal, and she has no plans for suicide. 01/04/2023 interval history: Patient with history alcohol abuse and poor historian presented with a fall briefly and loss of conscious and presented with a hypertension being hydrated her clinical symptoms are improving will continue to monitor, patient also has a risk of suicide in the past patient had attempted, and discussed with the patient patient does not have any intention of harming herself, her is also present in the and he agrees will take the suicidal precaution off, will continue to monitor,and further recommendation to follow, patient is seen by substance abuse rehab consulor and the of working with her, will continue to monitor with [facility] protocol. DS: Summary Hospital Course Reason for hospitalization: Chief Complaint: Fall. Narrative: This is a 62-year-old female with longstanding history of alcohol abuse, depression with history of suicide attempt in October 2022, anxiety, hypertension, epilepsy, GERD, and sleep apnea presented to the emergency department via EMS from home for evaluation after a fall. The patient provides the following history. Not long prior to arrival she was out on the porch and reports that her large dog pulled her, causing her to fall and hit her head. Emergency services were contacted and on their arrival she was hypotensive. EMS reports she had several episodes were she had brief losses of consciousness and her blood pressures were quite low. She does not recall feeling lightheaded or dizzy prior to the fall. She also denies chest pain, pleuritic pain, racing heart, lightheadedness, nausea, vomiting, diarrhea, and dysuria. She has not had a seizure for quite some time and does not believe she had a seizure today. On arrival to the ED her blood pressure was 85/63 and she received 2 L normal saline bolus. Labs were significant for sodium of 119, chloride 83, carbon dioxide 16, anion gap 20, creatinine 1.10, lactic acid 3.9. With further questioning she admi
[2023-01-05 12:00] VITALS: PULSE 72
--- NOTE | 2023-01-05 12:27 | PC.NURSE ---
Addendum entered by Suly Nguyen RN 01/05/23 12:31: IV removed, tip intact. Pt tolerated well. Original Note: Pt is A&O4. Pt was taken off of suicide precautions on 01/04/2023. Pt has reported feeling dizzy. Pt was listed as a high fall risk. Pt has denied any pain or swelling. Pt is compliant with care. Pt was advised that she will be taken to the car by wheel chair. Pt states that she does not like being in a wheel chair. Pt was educated that she will need to be taken down as a safety precaution. Pt verbalizes understanding and agrees with transport. Pt has been monitored for any changes in status while here. CIWA's negative this shift.
[2023-01-05 21:35] LABS: Osmolality, Urine 215 mOsm/kg (50-1200)
== END 2023-01-05 12:36 | disposition home or self-care (01) | DRG 312 ==
LOC: ANHED 18:04 → ANHIMU 19:17 → ANHICU 22:59 → ANH3MEDSUR 01-04 23:02
PROVIDERS: Physician Assistant; Admitting Provider Family Medicine; Emergency Provider Emergency Medicine; PCP Family Medicine; Visit Provider Family Medicine
DX: R55 Syncope and collapse (principal); E87.1 Hypo-osmolality and hyponatremia; W19.XXXA Unspecified fall, initial encounter; I95.9 Hypotension, unspecified; E86.0 Dehydration; E78.5 Hyperlipidemia, unspecified; E55.9 Vitamin D deficiency, unspecified; F32.A Depression, unspecified; F41.9 Anxiety disorder, unspecified; F10.10 Alcohol abuse, uncomplicated; G47.33 Obstructive sleep apnea (adult) (pediatric); G40.909 Epilepsy, unspecified, not intractable, without status epilepticus; I10 Essential (primary) hypertension; K21.9 Gastro-esophageal reflux disease without esophagitis; Z99.89 Dependence on other enabling machines and devices; Z85.41 Personal history of malignant neoplasm of cervix uteri; Z91.51 Personal history of suicidal behavior; Z87.891 Personal history of nicotine dependence
CPT/HCPCS: 36415; 70450; 71045; 72125; 80048; 80053; 82570; 83605; 83735; 83880; 83930; 83935; 84295; 84300; 84443; 84484; 84540; 85025; 85027; 85610; 85730; 93306; 93880; 96361; 96374; 99285; A9270; G0378; J3411; J7030; J7040

== ENCOUNTER 2023-03-07 09:43 | Outpatient (CLI) | payer OTHER, SELFPAY ==
[2023-03-07 12:22] LABS: Alanine Aminotransferase 31 U/L (6-35); Albumin Level 4.4 g/dL (3.5-5.1); Alkaline Phosphatase 49 U/L (38-126); Anion Gap 11 mmol/L (8-16); Aspartate Amino Transferase 74 U/L (14-36); Bilirubin,Total 0.4 mg/dL (0.2-1.3); Blood Urea Nitrogen 7 mg/dL (7-17); Calcium 8.9 mg/dL (8.4-10.2); Carbon Dioxide 27 mmol/L (22-30); Chloride 94 mmol/L (98-107); Estimated Glomerular Filt Rate > 60; Glucose 74 mg/dL (65-110); Sodium 132 mmol/L (137-145)
== END 2023-03-07 09:44 | disposition home or self-care (01) ==
LOC: ANHGOSHLAB 09:44
PROVIDERS: PCP Family Medicine; Visit Provider Nurse Practitioner Family
DX: Z12.31 Encounter for screening mammogram for malignant neoplasm of breast (principal); R74.8 Abnormal levels of other serum enzymes
CPT/HCPCS: 36415; 80053

== ENCOUNTER 2023-03-07 13:50 | Emergency (ER) | payer OTHER, SELFPAY ==
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
[2023-03-07 13:50] VITALS: BP 98/72; PULSE 81; RESP 16; TEMP 36.6; O2SAT 94
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
[2023-03-07 16:06] LABS: Basophils Percent Auto 0.5 % (0.2-1.2); Eosinophils Absolute Auto 0.1 K/mm3 (0-0.3); Eosinophils Percent Auto 1.1 % (0-4.4); Hematocrit 32.2 % (37.0-47.0); Hemoglobin 10.7 g/dL (12.0-15.0); Immature Granulocyte Absolute 0.03 K/mm3 (0.00-0.031); Immature Granulocyte Percent A 0.5 % (0-0.5); Lymphocytes Percent Auto 25.4 % (18.3-44.2); Mean Corpuscular HGB Conc 33.2 g/dl (32-36); Mean Corpuscular Volume 102.2 fl (80-100); Mean Platelet Volume 9.6 fl (7.4-10.4); Monocytes Absolute Auto 0.4 K/mm3 (0.1-0.6); Monocytes Percent Auto 7.4 % (2.6-8.5); Neutrophils Absolute Auto 3.6 K/mm3 (1.3-6.7); Neutrophils Percent Auto 65.1 % (45.5-73.1); Platelet Count Result 235 k/mm3 (150-375); Red Blood Count 3.15 M/mm3 (4.2-5.4); Red Cell Distribution Width 13.2 % (11.5-14.5); White Blood Count 5.5 K/mm3 (4.5-10.0)
[2023-03-07 16:09] VITALS: BP 115/89; PULSE 74; RESP 13; O2SAT 94
[2023-03-07 16:12] LABS: Alanine Aminotransferase 31 U/L (6-35); Albumin Level 4.4 g/dL (3.5-5.1); Alkaline Phosphatase 51 U/L (38-126); Anion Gap 12 mmol/L (8-16); Aspartate Amino Transferase 57 U/L (14-36); Bilirubin,Total 0.4 mg/dL (0.2-1.3); Blood Urea Nitrogen 7 mg/dL (7-17); Calcium 8.6 mg/dL (8.4-10.2); Carbon Dioxide 25 mmol/L (22-30); Chloride 92 mmol/L (98-107); Estimated CRCL calculation 55 ml/min; Estimated Glomerular Filt Rate > 60; Glucose 83 mg/dL (65-110); Potassium 3.7 mmol/L (3.4-5.0); Sodium 129 mmol/L (137-145)
[2023-03-07 16:13] LABS: Partial Thromboplastin Time 25.5 SECONDS (22.3-36.8); Prothrombin Time 13.2 Seconds (11.1-14.7)
[2023-03-07 16:30] VITALS: BP 109/84; PULSE 80; RESP 20; O2SAT 95
[2023-03-07] MEDS: SODIUM CHLORIDE 0.9% IV 500 ML 999 ML IV CONT (17:27)
[2023-03-07 17:29] VITALS: BP 130/85; PULSE 72; RESP 20; O2SAT 98
[2023-03-07 18:09] VITALS: BP 137/86; PULSE 73; RESP 26; O2SAT 100
[2023-03-07 18:36] VITALS: BP 143/95; PULSE 84; RESP 27; O2SAT 97
[2023-03-07 19:15] LABS: Appearance Urine Clear (Clear); Bacteria Urine None Seen /hpf; Bilirubin Urine Negative (Negative); Blood Urine 1+ (Negative); Color Urine Yellow (Yellow); Glucose Urine UA Negative (Negative); Ketones Urine Negative (Negative); Leukocyte Esterase Ur Negative LEU/UL (Negative); Nitrate Urine Negative (Negative); Non Pathogenic Casts 0-2; Protein Urine Negative (Negative); RBC Urine 0-2 /hpf (0-2); Specific Grav Ur 1.021 (1.001-1.035); Squamous Epithelial Cell Urine None seen /hpf (Few); Urobilinogen Urine 0.2 mg/dL (<2.0); WBC Urine 0-5 /hpf
[2023-03-07 19:17] LABS: Add Urine Microscopic? YES
== END 2023-03-07 18:59 | disposition home or self-care (01) ==
PROVIDERS: Emergency Provider Emergency Medicine; PCP Family Medicine
DX: S50.812A Abrasion of left forearm, initial encounter (principal); S50.811A Abrasion of right forearm, initial encounter; S22.43XA Multiple fractures of ribs, bilateral, initial encounter for closed fracture; S32.018A Other fracture of first lumbar vertebra, initial encounter for closed fracture; S32.028A Other fracture of second lumbar vertebra, initial encounter for closed fracture; S32.038A Other fracture of third lumbar vertebra, initial encounter for closed fracture; G40.909 Epilepsy, unspecified, not intractable, without status epilepticus; I10 Essential (primary) hypertension; E78.5 Hyperlipidemia, unspecified; E55.9 Vitamin D deficiency, unspecified; G47.33 Obstructive sleep apnea (adult) (pediatric); K21.9 Gastro-esophageal reflux disease without esophagitis; M81.0 Age-related osteoporosis without current pathological fracture; F41.9 Anxiety disorder, unspecified; F32.A Depression, unspecified; Z85.41 Personal history of malignant neoplasm of cervix uteri; Z87.891 Personal history of nicotine dependence; Z90.710 Acquired absence of both cervix and uterus; V49.40XA Driver injured in collision with unspecified motor vehicles in traffic accident, initial encounter
CPT/HCPCS: 36415; 70450; 70486; 71260; 72125; 74177; 80053; 81001; 85025; 85610; 85730; 96360; 99284; J7040; Q9967

== ENCOUNTER 2023-10-19 21:44 | Inpatient (IN) | payer OTHER, SELFPAY ==
--- NOTE | ~2023-10-19 | XR_ITS ---
EXAMINATION: XR chest 2V Exam Date/Time: 10/23/2023 18:28 CDT HISTORY: fever Comparison: 01/02/2023. RESULT: Lines, tubes, and devices: None. Lungs and pleura: Clear. Cardiomediastinal silhouette: Stable. Other: No acute osseous or upper abdominal finding. IMPRESSION: No acute cardiopulmonary process. Reviewed, dictated and finalized at location K.
--- NOTE | ~2023-10-19 | CT_ITS ---
Non-contrast Head CT History: Seizure-like activity COMPARISON: 03/07/2023 Technique: Axial non-contrast imaging of the brain was performed. Dose reduction technique was used on this scan by utilizing automated exposure control and iterative reconstruction technique. The dose -length product (DLP) was 605.33 mGy-cm. Findings: There is no evidence of intracranial hemorrhage, mass lesion, or acute infarct. Brain par enchyma appears normal. The ventricles and subarachnoid spaces are mildly dilated. The calvarium ap pears normal. The visualized paranasal sinuses and mastoid air cells are clear. Impression: No acute abnormality seen. Mild generalized atrophy. Reviewed, dictated and finalized at location . Impression: No acute abnormality seen. Mild generalized atrophy.
--- NOTE | ~2023-10-19 | MR_ITS ---
EXAMINATION: MR brain/brain stem wo con DATE: 10/21/2023 15:21 INDICATION: seizure TECHNIQUE: Magnetic resonance imaging (MRI) of the brain and brainstem was performed without intraven ous contrast (the patient's IV became disconnected/dislodged during examination which was not noticed until the imaging was completed). Sequences included sagittal and axial T1-weighted SE, axial diffus ion-weighted FS EPI ASSET, axial T2*-weighted GRE, axial T2-weighted FLAIR Propeller, and axial T2-we ighted Propeller. Apparent diffusion coefficient (ADC) maps were created. COMPARISON: CT brain 10/19/2023 FINDINGS: No abnormal restricted diffusion to suggest acute ischemic infarct. No MRI evidence of hemorrhage or extra-axial collection. No suspicious foci of susceptibility to suggest prior intraparenchymal hemorr alicia. Normal white matter signal. Mild generalized parenchymal volume loss. The basilar cisterns are patent. Flow voids are preserved. Small bilateral maxillary retention cysts/polyps, mild ethmoid muco melanie thickening, the remaining sinuses are within normal limits. Bilateral lens replacements, otherwis e the globes and orbital contents are within normal limits. IMPRESSION: No acute intracranial process detected in this noncontrast MRI of the brain. Reviewed, dictated and finalized at location K.
[2023-10-19 21:35] VITALS: BP 104/71; PULSE 62; RESP 13; TEMP 36.3; O2SAT 99
[2023-10-19 21:48] VITALS: BP 104/71; PULSE 62; RESP 13; TEMP 36.3; O2SAT 99
--- NOTE | 2023-10-19 21:50 | ECG_ITS ---
SEE SCANNED COPY FOR CONFIRMED REPORT MTDD
[2023-10-19 21:51] VITALS: O2SAT 99
[2023-10-19 22:01] VITALS: BP 109/67; PULSE 52; RESP 11; O2SAT 96
[2023-10-19 22:04] LABS: Glucose Point of Care 87 mg/dl (65-105)
[2023-10-19 22:23] LABS: Basophils Percent Auto 0.8 % (0.2-1.2); Eosinophils Percent Auto 0.6 % (0-4.4); Hematocrit 37.8 % (37.0-47.0); Immature Granulocyte Absolute 0.02 K/mm3 (0.00-0.031); Immature Granulocyte Percent A 0.4 % (0-0.5); Lymphocytes Absolute Auto 1.45 K/mm3 (0.9-3.2); Lymphocytes Percent Auto 30.4 % (18.3-44.2); Mean Corpuscular HGB Conc 34.4 g/dl (32-36); Mean Corpuscular Hemoglobin 31.9 pg (26-34); Mean Corpuscular Volume 92.9 fl (80-100); Mean Platelet Volume 9.3 fl (7.4-10.4); Monocytes Absolute Auto 0.4 K/mm3 (0.1-0.6); Monocytes Percent Auto 7.3 % (2.6-8.5); Neutrophils Absolute Auto 2.9 K/mm3 (1.3-6.7); Neutrophils Percent Auto 60.5 % (45.5-73.1); Platelet Count Result 238 k/mm3 (150-375); Red Blood Count 4.07 M/mm3 (4.2-5.4); Red Cell Distribution Width 15.5 % (11.5-14.5); White Blood Count 4.8 K/mm3 (4.5-10.0)
[2023-10-19 22:31] VITALS: BP 112/66; PULSE 54; RESP 11; O2SAT 100
[2023-10-19 22:38] LABS: Alanine Aminotransferase 18 U/L (6-35); Albumin Level 4.5 g/dL (3.5-5.1); Alkaline Phosphatase 60 U/L (38-126); Anion Gap 13 mmol/L (4-12); Aspartate Amino Transferase 38 U/L (14-36); Bilirubin,Total 0.4 mg/dL (0.2-1.3); Blood Urea Nitrogen 7 mg/dL (7-17); Calcium 8.3 mg/dL (8.4-10.2); Carbon Dioxide 23 mmol/L (22-30); Chloride 95 mmol/L (98-107); Estimated CRCL calculation 53 ml/min; Estimated Glomerular Filt Rate > 60; Glucose 86 mg/dL (65-110); Potassium 3.9 mmol/L (3.4-5.0); Sodium 131 mmol/L (137-145)
[2023-10-19 23:02] LABS: Ethanol 306 mg/dL (<10)
[2023-10-19 23:17] VITALS: PULSE 60; RESP 14; O2SAT 90
--- NOTE | 2023-10-19 23:25 | PC.NURSE ---
per patient blood pressure, normal saline bolus at rate of 999 mls/ hour was initiated. ARGENTINA Miller verbal ordered medication. this rn used closed loop communication to confirm medication administration for patient. pt blood pressure at this time is 86/60.
[2023-10-19] MEDS: SODIUM CHLORIDE 0.9% IV 1,000 ML 999 ML (23:47)
[2023-10-20] VITALS (31 sets, daily range): BP systolic 93–149; BP diastolic 57–87; PULSE 53–102; RESP 10–16; TEMP 36.2–36.6; O2SAT 92–100; BMI 20.4
--- NOTE | 2023-10-20 00:21 | ED.GENADULT ---
HPI - General Adult General Chief complaint: Recheck/Abnormal Lab/Rx Stated complaint: HYPOTENSION S/P MULTIPLE SEIZURES TODAY. Time Seen by Provider: 10/19/23 23:25 Source: patient, family and EMS Mode of arrival: EMS Limitations: no limitations History of Present Illness HPI narrative: 63-year-old female presenting for 3 seizures today. History of epilepsy. Also drinks alcohol daily. Typically drinks 1 bottle of wine a day but drink 2 bottles of wine today. Her seizures are typically caused by stressful events but she has not had any stressful events recently. Her last seizure was a few weeks ago and prior to that she has not had any for a few years. Had 3 seizures today and was very weak, pale and sweaty according to her . Currently she is asymptomatic. Related Data Home Medications Medication Instructions Recorded Confirmed levetiracetam 500 mg tablet 500 mg PO Q12H 08/23/21 09/12/23 melatonin 5 mg capsule 5 mg PO QHS 03/28/22 09/12/23 vitamin B complex (B 1 tablet PO DAILY 03/28/22 09/12/23 Complex-Vitamin B12 tablet) ibandronate 150 mg tablet 150 mg PO MONTHLY 01/02/23 09/12/23 thiamine mononitrate (vit B1) 100 mg PO 01/23/23 09/12/23 mg tablet (Vitamin B-1 (mononitrate)) Allergies Allergy/AdvReac Type Severity Reaction Status Date / Time hydrochlorothiazide Allergy Severe hyponatremi Verified 09/12/23 09:40 a Penicillins Allergy Severe Seizure Verified 09/12/23 09:40 zonisamide AdvReac Intermediate hands Verified 09/12/23 09:40 peeling and increased anxiety Review of Systems Review of Systems: All systems reviewed & are unremarkable except as noted in HPI and below [facility] Past Medical History Medical History Age-related osteoporosis without current pathological fracture Alcohol abuse Anxiety Depression Epilepsy Started in gravel ha[employer], 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 Essential (primary) hypertension Fracture of left clavicle GERD without esophagitis History of cervical cancer History of suicide attempt (10/2022) Hyperlipidemia Insomnia Obstructive sleep apnea treated with continuous positive airway pressure (CPAP) Vitamin D deficiency Surgical History Surgical History History of hysterectomy Family History Family History Mother Family history of arthritis Father Family history of heart disease in male family member before age 55 Other Diabetes mellitus Social History Social History Social History: Surrogate medical decision maker: Perry Becerra, spouse. Code status: Full code. Smoking packs per day: 1 Smoking cigarettes per day: 20.0 Years smoked: 30 Smoking pack-years: 30.00 Smoking status: Former smoker Tobacco type: cigarettes Alcohol intake: current Drinks per week: 7 Substance use: never Substance use type: does not use Lack of Transportation: No Lack of Food: Never True Current Housing: I Have Housing Concerned About Future Housing: No Difficulty Paying Gas/Electric Bills: No Difficulty Paying for Meds: No Currently Unemployed: No Education: Bachelor's Degree Difficulty w/ Childcare or Family Care: No Living arrangements: with family Additional living arrangements comments: Lives with in [place]. They have 3 children. Occupation/Education: retired Spiritual care concerns: No Exam Narrative: Constitutional: Generally well appearing, no acute distress Head: Atraumatic, no deformities. Eyes: Pupils equal, round, and reactive to light. Neck: Supple, no tracheal deviation, no JVD. ENMT: Mucous membranes moist Cardiovascular: S1, S2 auscultated. No murmurs, rubs, or gallops. No S3/S4. Normal Distal pulses. No peripheral edema. R
[2023-10-20] MEDS: levETIRAcetam 1000MG/NACL100ML 1,000 MG/100 ML BAG 400 MG IVPB (00:27)
[2023-10-20] MEDS: SODIUM CHLORIDE 0.9% IV 1,000 ML 125 ML IV CONT (02:26)
[2023-10-20 02:42] LABS: Glucose Point of Care 71 mg/dl (65-105)
--- NOTE | 2023-10-20 04:09 | ADMGEN ---
This patient, Amanda Becerra, was admitted to IMU Room 206-02. Patient/family oriented to hospital policies and general routines including ID bracelet, bed and alarms, visiting hours, pain management, procedures, bathroom and other care routines, personal items, smoking policy, room service/diet, and visiting hours. Information on how to activate the Rapid Response Team has been discussed. Patient/Family are encouraged to report perceived risks to care and to ask questions if they do not understand what they are told or what they should do.
--- NOTE | 2023-10-20 09:35 | PM.IMHP ---
H&P: HPI History of Present Illness Date/Time: 10/20/23 09:35 Chief Complaint: Seizures Narrative: 63yo female with alcoholism, seizure disorder, ALAN, depression with suicide attempt and HTN here for seizure activity. Patient had a seizure disorder when she was a child but had been in remission since age 6. Seizures resumed she turned 60 years old. She had been on 2 antiepileptic medications for a few years but in March she was weaned off 1 medication and her Keppra was increased to 750 mg Q 12. Since that time, she had been seizure-free up until 1 week ago when she had a seizure. She did not seek medical care for that. She on the day prior to admission, patient had 3 successive seizures in a row lasting up to 30 seconds each. She was standing in the kitchen when she collapsed. Her was able to catch her and lower her to the ground. He does not believe that there was head trauma. No tongue biting but did have urine incontinence. states patient was confused after the seizure. Patient was shaking and was stiff with arms stretched. Patient has been compliant with her Keppra. She has a history of alcoholism. She has been at rehab 3 times in the past. She was last discharged from rehab in the end of May. She was free of alcohol up until about 6 weeks ago when she began to drink again. She drinks 1 bottle of wine a day but did drink 2 bottles on the day of admission. She denies any recent change in her medications. No fever, chills, chest pain, palpitations, shortness of breath, cough, dysuria, hematuria. She does have loose stools today. No sick contacts. She has been having allergy symptoms. She feels hot and cold at times but feels is related to menopause. She has been feeling depressed with anxiety recently but denies any suicidal or homicidal ideation. EMS was contacted and patient was brought to the emergency room for evaluation. In the ED, she was hemodynamically stable. CBC was normal. Sodium 131, Chloride 95, bicarb normal with AG 13. AST 38 otherwise LFTs normal. Alcohol level was 306. CT brain showing no acute findings but shows mild generalized atrophy. She was given IV fluids and one dose of IV Keppra. 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 Essential (primary) hypertension Fracture of left clavicle GERD without esophagitis History of cervical cancer History of suicide attempt (10/2022) Hyperlipidemia Insomnia Obstructive sleep apnea treated with continuous positive airway pressure (CPAP) Vitamin D deficiency Surgical History Surgical History History of hysterectomy Family History Family History Mother Family history of arthritis Father Family history of heart disease in male family member before age 55 Other Diabetes mellitus Social History Social History (Updated 10/20/23 @ 10:25 by Kiet Aldrich MD) Social History: She lives at home with her and daughter. She smoked half a pack a day for 28+ years before changing to vaping. She has been vaping since 2012. She denies drug use. Alcohol use as mentioned above. Surrogate medical decision maker: Perry Hernan, spouse. Code status: Full code. Smoking packs per day: 1 Smoking cigarettes per day: 20.0 Years smoked: 30 Smoking pack-years: 30.00 Smoking status: Current every day smoker Tobacco type: e-cigarettes/vaping Alcohol intake: current Drinks per week: 7 Substance use: never Substance use
--- NOTE | 2023-10-20 10:07 | WPDNEURCNPN ---
Assessment and Plan Assessment and plan (1) Seizure: Code(s): R56.9 - Unspecified convulsions Status: Acute (2) Acute alcoholic intoxication: Qualifiers: Complication of substance-induced condition: with unspecified complication Qualified Code(s): F10.929 - Alcohol use, unspecified with intoxication, unspecified Code(s): F10.929 - Alcohol use, unspecified with intoxication, unspecified Status: Acute (3) Epilepsy: Qualifiers: Epilepsy type: unspecified Intractability: intractable Status epilepticus: without status epilepticus Qualified Code(s): G40.919 - Epilepsy, unspecified, intractable, without status epilepticus Code(s): G40.909 - Epilepsy, unspecified, not intractable, without status epilepticus Status: Acute Plan Ms. Becerra is a 63 year old female with a history of childhood onset epilepsy and alcoholism presenting for increased seizure frequency. On exam she has some questionable RUE numbness. Seizures had been fairly well controlled prior to this past week. She is a daily drinker, but there does not seem to be any other provoking factor. - Increase Keppra to 1000mg BID - Obtain MRI brain w/o contrast - Discussed no driving until seizure free for at least six months - Needs outpatient Neurology follow-up after discharge Consult date: 10/20/23 Reason for consult: Seizures HPI: Amanda Becerra is a 63 year old female with a history of epilepsy, alcoholism, HTN, depression, ALAN presenting for evaluation of seizures. 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 However, she had resurgence of seizures around age 60. She takes Keppra 750mg BID. She drinks typically 1 bottle of wine per day. On the day of presentation she drank two bottles of wine. She reportedly had three seizures on the day of presentation. She was taken to the ER where her alcohol level was in the 300s. Labs were otherwise only showed mild hyponatremia. CT head showed no acute process. She was given a 1000mg dose of Keppra in the ER. describes her seizure semiology as head turning to the right followed by full body convulsions. She has gone to rehab for alcoholism in the past. She used to see a Neurologist at [facility] but is no longer seeing one. She is very anxious today. She has had suicide attempts in the past. Currently she denies any SI. 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 Essential (primary) hypertension Fracture of left clavicle GERD without esophagitis History of cervical cancer History of suicide attempt (10/2022) Hyperlipidemia Insomnia Obstructive sleep apnea treated with continuous positive airway pressure (CPAP) Vitamin D deficiency Surgical History Surgical History History of hysterectomy Family History Family History Mother Family history of arthritis Father Family history of heart disease in male family member before age 55 Other Diabetes mellitus Social History Social History (Updated 10/20/23 @ 10:25 by Kiet Aldrich MD) Social History: She lives at home with her and daughter. She smoked half a pack a day for 28+ years before changing to vaping. She has been vaping since 2013. She denies drug use. Alcohol use as mentioned above. Surrogate medical decision maker: Perry Becerra, spouse. Code status: Full code. Smoking packs per day: 1 Smoking cigarettes per day: 20.0 Years smoked: 30 Smoking pack-years: 30.00 Smoking status: Current ev
[2023-10-20] MEDS: levETIRAcetam Tablet 250 MG, levETIRAcetam Tablet 500 MG 750 MG PO (11:13)
[2023-10-20] MEDS: THIAMINE HCL 200 MG/2 ML VIAL 100 MG IV PUSH (11:13)
[2023-10-20] MEDS: FOLIC ACID 1 MG TABLET PO (11:13)
[2023-10-20] MEDS: FLUoxetine HCL 20 MG CAPSULE PO ×2 (13:38→18:03)
[2023-10-20] MEDS: PANTOPRAZOLE 40 MG TABLET PO (13:41)
[2023-10-20 14:09] LABS: Folic Acid > 20.0 ng/mL (2.76->20)
[2023-10-20 15:57] LABS: Amphetamine Screen Urine Negative (Negative); Barbiturate Screen Urine Negative (Negative); Benzodiazepines Screen Urine Negative (Negative); Cannabinoid Screen Urine Negative (Negative); Cocaine Screen Urine Negative (Negative); Methadone Screen Urine Negative (Negative); Opiate Screen Urine Negative (Negative); Phencyclidine Screen Urine Negative (Negative)
--- NOTE | 2023-10-20 21:44 | ECG_ITS ---
SEE SCANNED COPY FOR CONFIRMED REPORT MTDD
[2023-10-20] MEDS: ACETAMINOPHEN 325 MG TABLET 650 MG PO (22:03)
[2023-10-20] MEDS: traZODone HCL 50 MG TABLET PO (22:04)
[2023-10-20] MEDS: levETIRAcetam 500 MG TABLET 1000 MG PO (22:04)
[2023-10-20] MEDS: CALCIUM CARBONATE (TUMS) 500 MG (200 MG ELEMENTAL) PO (22:04)
[2023-10-20] MEDS: MELATONIN 5 MG TABLET PO (22:04)
[2023-10-20 22:29] LABS: Troponin I < 0.012 ng/mL (0.000-0.034)
[2023-10-21] VITALS (14 sets, daily range): BP systolic 152–159; BP diastolic 82–93; PULSE 56–103; RESP 16; TEMP 36.3–37.4; O2SAT 96–100
[2023-10-21 04:52] LABS: Anion Gap 5 mmol/L (4-12); Blood Urea Nitrogen 6 mg/dL (7-17); Calcium 8.9 mg/dL (8.4-10.2); Carbon Dioxide 29 mmol/L (22-30); Chloride 100 mmol/L (98-107); Estimated CRCL calculation 70 ml/min; Estimated Glomerular Filt Rate > 60; Glucose 85 mg/dL (65-110); Potassium 3.7 mmol/L (3.4-5.0); Sodium 134 mmol/L (137-145)
[2023-10-21] MEDS: FOLIC ACID 1 MG TABLET PO (09:58)
[2023-10-21] MEDS: PANTOPRAZOLE 40 MG TABLET PO (09:58)
[2023-10-21] MEDS: FLUoxetine HCL 20 MG CAPSULE PO ×3 (09:58→18:16)
[2023-10-21] MEDS: levETIRAcetam 500 MG TABLET 1000 MG PO ×2 (09:58→21:14)
[2023-10-21] MEDS: CALCIUM/VITAMIN D 500 MG/5 MCG (200 I.U.) TABLET PO (09:58)
[2023-10-21] MEDS: FERROUS SULFATE 325 MG TABLET DR PO (09:58)
[2023-10-21] MEDS: VITAMIN B COMPLEX CAPSULE 1 CAP PO (09:58)
[2023-10-21] MEDS: ENOXAPARIN 40 MG/0.4 ML SYRINGE SUB-Q (09:59)
[2023-10-21] MEDS: THIAMINE HCL 200 MG/2 ML VIAL 100 MG IV PUSH (09:59)
[2023-10-21] MEDS: ACETAMINOPHEN 325 MG TABLET 650 MG PO ×2 (11:02→21:14)
--- NOTE | 2023-10-21 17:13 | PM.IMPN ---
Progress Note: A&P Assessment and Plan (1) Seizure: Code(s): R56.9 - Unspecified convulsions Status: Acute Assessment and Plan: Patient had 3 successive seizures in a row. She had 1 seizure about a week ago but otherwise had been seizure-free since March after the adjustments of her medications. She has been compliant with the Keppra. The seizure probably related to the increasing alcohol use. Neurology consulted and appreciate their input. We resumed her Keppra and dose increased to 1gm Q12. MRI brain completed but awaiting reading. (2) Acute alcoholic intoxication: Qualifiers: Complication of substance-induced condition: with unspecified complication Qualified Code(s): F10.929 - Alcohol use, unspecified with intoxication, unspecified Code(s): F10.929 - Alcohol use, unspecified with intoxication, unspecified Status: Acute Assessment and Plan: Alcohol level was 300. Patient was educated about the benefits of abstaining from alcohol use. No evidence of acute withdrawal. Continue CIWA protocol. Ativan available as needed. Continue thiamine and folate. (3) Hyponatremia: Code(s): E87.1 - Hypo-osmolality and hyponatremia Status: Acute Assessment and Plan: Sodium 131 probably related to dehydration from alcohol use due to poor oral intake and/or HCTZ use.. She was on IV fluids. Continue her regular diet. Sodium level better. (4) Essential (primary) hypertension: Code(s): I10 - Essential (primary) hypertension Status: Chronic Assessment and Plan: Blood pressure was normal on admission. Her systolic blood pressure did drop into the 90s overnight. Patient is on amlodipine, HCTZ, lisinopril and metoprolol at home. BP medications were on hold initially. BP higher today. Will resume her norvasc tonight and probably metoprolol in the morning Monitor blood pressure and resume medications as needed. (5) Alcohol abuse: Code(s): F10.10 - Alcohol abuse, uncomplicated Status: Chronic Assessment and Plan: As above. Plan DVT prophylaxis -Lovenox Code status -full Subjective Date/time seen: 10/21/23 17:13 Interval history: 63yo female with alcoholism, seizure disorder, ALAN, depression with suicide attempt and HTN here for seizure activity.?? Slept okay. Did have a headache and chest pressure earlier but better after a tums and tyelnol. No tremors. Exam Narrative: AF 99.3 156/84 63 16 96% ra Gen - NARD Chest - CTA bilaterally, nml RR CV - RRR S1/S2. Tele showing no significant dyrhythmias Abd - Soft, NT/ND, Positive BS Ext - No pedal edema Neuro - Alert and oriented. Nonfocal exam. Psych - Nml mood and affect Skin - Warm and dry Objective Data Vital Signs Vital Signs: Vital Signs - 24 hr 10/20/23 18:00 10/20/23 20:20 10/20/23 21:40 Temperature 97.4 F L Pulse Rate 83 82 Respiratory Rate 16 Blood Pressure 148/86 H Pulse Oximetry 99 Oxygen Delivery Room Air 10/20/23 23:57 10/21/23 00:00 10/20/23 20:00 Temperature 97.4 F L Pulse Rate 66 82 Respiratory Rate 16 Blood Pressure 146/87 H Pulse Oximetry 97 Oxygen Delivery Room Air 10/20/23 22:00 10/21/23 00:00 10/21/23 02:00 Temperature Pulse Rate 78 67 56 L Respiratory Rate Blood Pressure Pulse Oximetry Oxygen Delivery 10/21/23 04:12 10/21/23 04:00 10/21/23 04:00 Temperature 97.4 F L Pulse Rate 61 91 Respiratory Rate 16 Blood Pressure 159/87 H Pulse Oximetry 100 Oxygen Delivery Room Air 10/21/23 06:00 10/21/23 08:00 10/21/23 08:00 Temperature 99.0 F Pulse Rate 81 60 Respiratory Rate 16 Blood Pressure 158/85 H Pulse Oximetry 98 Oxygen Delivery Room Air 10/21/23 08:00 10/21/23 10:00 10/21/23 12:00 Temperature 99.3 F Pulse Rate 90 70 74 Respiratory Rate 16 Blood Pressure 156/84 H Pulse Oximetry 96 Oxygen Delivery
[2023-10-21] MEDS: amLODIPine BESYLATE 5 MG TABLET PO (18:16)
[2023-10-21] MEDS: traZODone HCL 50 MG TABLET PO (21:14)
[2023-10-21] MEDS: MELATONIN 5 MG TABLET PO (21:14)
[2023-10-22] VITALS (20 sets, daily range): BP systolic 135–171; BP diastolic 88–93; PULSE 57–114; RESP 16–18; TEMP 36.3–36.9; O2SAT 97–100
[2023-10-22] MEDS: levETIRAcetam 500 MG TABLET 1000 MG PO ×2 (09:46→20:51)
[2023-10-22] MEDS: FERROUS SULFATE 325 MG TABLET DR PO (09:46)
[2023-10-22] MEDS: FOLIC ACID 1 MG TABLET PO (09:46)
[2023-10-22] MEDS: CALCIUM/VITAMIN D 500 MG/5 MCG (200 I.U.) TABLET PO (09:46)
[2023-10-22] MEDS: FLUoxetine HCL 20 MG CAPSULE PO ×3 (09:46→16:13)
[2023-10-22] MEDS: VITAMIN B COMPLEX CAPSULE 1 CAP PO (09:46)
[2023-10-22] MEDS: THIAMINE HCL 200 MG/2 ML VIAL 100 MG IV PUSH (09:46)
[2023-10-22] MEDS: PANTOPRAZOLE 40 MG TABLET PO (09:46)
[2023-10-22] MEDS: ENOXAPARIN 40 MG/0.4 ML SYRINGE SUB-Q (09:46)
[2023-10-22] MEDS: LORazepam INJ (*CRX) 2 MG/ML VIAL IV PUSH (09:47)
--- NOTE | 2023-10-22 13:30 | WPDNEUROPN ---
Subjective Date/time seen: 10/22/23 13:30 Interval history: 63 years old with history of childhood onset epilepsy, chronic alcoholism, increasing seizures, with complaint of right upper extremity numbness seen initially by Dr. Christian Keppra was increased [id number] twice a day with instruction to follow in the office all the MRIs ordered her initial CT scan of the head was negative and brain MRI was normal as well, she is receiving thiamine, folic acid, ferrous sulfate, trazodone, fluoxetine, levetiracetam 1000mg q.12 amlodipine as well. Seizures were attributed to the possible alcohol intake but the Lamictal was obviously as mentioned above increased to1g q.12 hours her initial alcohol level was 300 she was noted to have initially sodium 131 which has come up to 134 she will need the ongoing counseling for the chronic alcoholism, seizure care, and ongoing treatment for the depression. Objective Data Vital Signs Vital Signs: Vital Signs - 24 hr 10/21/23 16:00 10/21/23 14:00 10/21/23 16:00 Temperature Pulse Rate 65 63 Respiratory Rate Blood Pressure Pulse Oximetry Oxygen Delivery Room Air 10/21/23 18:00 10/21/23 16:00 10/21/23 19:56 Temperature 36.4 C L 36.3 C L Pulse Rate 74 59 L 70 Respiratory Rate 16 16 Blood Pressure 153/82 H 152/93 H Pulse Oximetry 100 100 Oxygen Delivery 10/22/23 00:04 10/22/23 04:47 10/22/23 07:44 Temperature 36.6 C 36.5 C 36.4 C L Pulse Rate 67 63 72 Respiratory Rate 16 16 18 Blood Pressure 167/89 H 171/92 H 151/88 H Pulse Oximetry 100 100 98 Oxygen Delivery 10/21/23 20:00 10/21/23 22:00 10/22/23 00:00 Temperature Pulse Rate 103 H 59 L 75 Respiratory Rate Blood Pressure Pulse Oximetry Oxygen Delivery 10/22/23 02:00 10/22/23 04:00 10/22/23 06:00 Temperature Pulse Rate 57 L 59 L 72 Respiratory Rate Blood Pressure Pulse Oximetry Oxygen Delivery 10/22/23 04:00 10/22/23 11:49 Temperature 36.9 C Pulse Rate 109 H Respiratory Rate 16 Blood Pressure 135/91 H Pulse Oximetry 100 Oxygen Delivery Room Air Intake/Output Intake/Output: Intake & Output 10/19/23 10/20/23 10/21/23 10/22/23 23:59 23:59 23:59 23:59 Intake Total 1939 2605 840 Output Total 1300 1500 Balance 1939 1305 -660 Meds/Results Medications: Active Medications Generic Name Dose Route Start Last Admin Trade Name Freq PRN Reason Stop Dose Admin Acetaminophen 650 mg 10/20/23 21:46 10/21/23 21:14 Acetaminophen 325 Mg Tablet PO 650 mg Q6H PRN Administration Mild Pain (1-3) or Fever Amlodipine Besylate 5 mg 10/21/23 18:00 10/21/23 18:16 Amlodipine Besylate 5 Mg Tablet PO 5 mg QPM JI Administration Calcium Carbonate 500 mg 10/21/23 09:00 10/22/23 09:46 Calcium/Vitamin D 500 Mg/5 Mcg (200 I.U.) Tablet PO 11/20/23 08:59 500 mg DAILY JI Administration Chlordiazepoxide HCl 25 mg 10/20/23 10:37 Chlordiazepoxide (*Crx) 25 Mg Capsule PO Q6H PRN Withdrawal Enoxaparin Sodium 40 mg 10/21/23 09:00 10/22/23 09:46 Enoxaparin 40 Mg/0.4 Ml Syringe SUB-Q 40 mg DAILY JI Administration Ferrous Sulfate 325 mg 10/21/23 09:00 10/22/23 09:46 Ferrous Sulfate [address] PO 325 mg DAILY JI Administration Fluoxetine HCl 20 mg 10/20/23 13:00 10/22/23 09:46 Fluoxetine Hcl 20 Mg Capsule PO 20 mg TID JI Administration Fluticasone Propionate 2 spray 10/20/23 11:37 Fluticasone Propionate 0.05% Na Spr 16 Gm Btl (*Bkc) NASAL DAILY PRN Allergy Symptoms Folic Acid 1 mg 10/20/23 10:40 10/22/23 09:46 Folic Acid 1 Mg Tablet PO 1 mg DAILY JI Administration Levetiracetam 1,000 mg 10/20/23 21:00 10/22/23 09:46 Levetiracetam 500 Mg Tablet PO 1,000 mg Q12HR JI Administration Lorazepam 2 mg 10/20/23 10:37 10/22/23 09:47 Lorazepam Inj (*Crx) 2 Mg/Ml Vial IV PUSH 2 mg Q2H PRN Administration CIWA > 15 Melatonin 5
--- NOTE | 2023-10-22 13:43 | ECG_ITS ---
SEE SCANNED COPY FOR CONFIRMED REPORT MTDD
--- NOTE | 2023-10-22 15:05 | PM.IMPN ---
Progress Note: A&P Assessment and Plan (1) Seizure: Code(s): R56.9 - Unspecified convulsions Status: Acute Assessment and Plan: Patient had 3 successive seizures in a row prior to admission. She had 1 seizure about a week ago but otherwise had been seizure-free since March after the adjustments of her medications. She has been compliant with the Keppra. The seizure probably related to the increasing alcohol use. Neurology consulted and appreciate their input. We resumed her Keppra and neuro recommended increasing the dose to 1gm Q12 which was done. MRI brain without contrast (IV became dislodged during the procedure) showing no acute intracranial process. Follow. Contineu seizure precautions. (2) Acute alcoholic intoxication: Qualifiers: Complication of substance-induced condition: with unspecified complication Qualified Code(s): F10.929 - Alcohol use, unspecified with intoxication, unspecified Code(s): F10.929 - Alcohol use, unspecified with intoxication, unspecified Status: Acute Assessment and Plan: Alcohol level was 300. Patient was educated about the benefits of abstaining from alcohol use. CIWA 0-3 since admission except with CIWA documented at 15 this morning and Ativan IV given. Continue CIWA protocol. Ativan available as needed for CIWA>15 and Librium prn for CIWA 8-15. Continue thiamine and folate. Tachycardia noted. Tele showing sinus tach confirmed by EKG. TSH normal. No clinical symptoms or evidence of DVT/PE. Consider related to dehydration but appears to be eating okay. Could be related to being off her metoprolol. Give fluid bolus. (3) Hyponatremia: Code(s): E87.1 - Hypo-osmolality and hyponatremia Status: Acute Assessment and Plan: Sodium 131 probably related to dehydration from alcohol use due to poor oral intake and/or HCTZ use. Sodium level better. Continue her regular diet. (4) Essential (primary) hypertension: Code(s): I10 - Essential (primary) hypertension Status: Chronic Assessment and Plan: Blood pressure was normal on admission. Her systolic blood pressure did drop into the 90s overnight. Patient is on amlodipine, HCTZ, lisinopril and metoprolol at home. BP medications were on hold initially. Norvasc resumed last night. BP higher again today. Resume metoprolol today Monitor blood pressure and resume medications as needed. (5) Alcohol abuse: Code(s): F10.10 - Alcohol abuse, uncomplicated Status: Chronic Assessment and Plan: As above. Plan DVT prophylaxis -Lovenox Code status -full Subjective Date/time seen: 10/22/23 15:05 Interval history: 63yo female with alcoholism, seizure disorder, ALAN, depression with suicide attempt and HTN here for seizure activity.?? Feels weak. No CP of SOB. Headache better. Noted to be tachycardic when up walking to the BR. No pleuritic chest pain. CIWA up to 15 this morning and received Ativan Exam Narrative: AF 98.4 135/91 105 16 100% ra Gen - NARD Chest - CTA bilaterally, nml RR CV - tachycardia, regular. Tele showing sinus tachycardia Abd - Soft, NT/ND, Positive BS Ext - No pedal edema. Negative Michelle[facility] Neuro - Alert and oriented. Nonfocal exam. Psych - Nml mood and affect Skin - Warm and dry Objective Data Vital Signs Vital Signs: Vital Signs - 24 hr 10/21/23 16:00 10/21/23 16:00 10/21/23 18:00 Temperature Pulse Rate 63 74 Respiratory Rate Blood Pressure Pulse Oximetry Oxygen Delivery Room Air 10/21/23 16:00 10/21/23 19:56 10/22/23 00:04 Temperature 97.5 F L 97.4 F L 97.9 F Pulse Rate 59 L 70 67 Respiratory Rate 16 16 16 Blood Pressure 153/82 H 152/93 H 167/89 H Pulse Oximetry 100 100 100 Oxygen Delivery 10/22/23 04:47 10/22/23 07:44 10/21/23 20:00 Temperature 97.7 F 97.5 F L Pulse Rate 63 72 103 H Respiratory Rate 16 18 Blood Pressure 171/92 H 151/8
[2023-10-22] MEDS: METOPROLOL SUCCINATE EXT REL 100 MG TABCR PO (16:13)
[2023-10-22] MEDS: SODIUM CHLORIDE 0.9% IV 500 ML 999 ML IV CONT (16:13)
[2023-10-22] MEDS: amLODIPine BESYLATE 5 MG TABLET PO (18:00)
[2023-10-22] MEDS: ACETAMINOPHEN 325 MG TABLET 650 MG PO (20:50)
[2023-10-22] MEDS: MELATONIN 5 MG TABLET PO (20:51)
[2023-10-22] MEDS: traZODone HCL 50 MG TABLET PO (20:51)
[2023-10-23] VITALS (20 sets, daily range): BP systolic 128–170; BP diastolic 84–97; PULSE 57–75; RESP 16–20; TEMP 36.2–38.5; O2SAT 96–100
[2023-10-23] MEDS: FLUoxetine HCL 20 MG CAPSULE PO ×3 (09:54→17:37)
[2023-10-23] MEDS: METOPROLOL SUCCINATE EXT REL 100 MG TABCR PO (09:54)
[2023-10-23] MEDS: levETIRAcetam 500 MG TABLET 1000 MG PO ×2 (09:54→21:03)
[2023-10-23] MEDS: PANTOPRAZOLE 40 MG TABLET PO (09:54)
[2023-10-23] MEDS: FERROUS SULFATE 325 MG TABLET DR PO (09:54)
[2023-10-23] MEDS: FOLIC ACID 1 MG TABLET PO (09:54)
[2023-10-23] MEDS: VITAMIN B COMPLEX CAPSULE 1 CAP PO (09:54)
[2023-10-23] MEDS: CALCIUM/VITAMIN D 500 MG/5 MCG (200 I.U.) TABLET PO (09:54)
[2023-10-23] MEDS: THIAMINE HCL 200 MG/2 ML VIAL 100 MG IV PUSH (09:55)
[2023-10-23] MEDS: ENOXAPARIN 40 MG/0.4 ML SYRINGE SUB-Q (09:55)
--- NOTE | 2023-10-23 17:17 | PM.IMPN ---
Progress Note: A&P Assessment and Plan (1) Fever: Code(s): R50.9 - Fever, unspecified Status: Acute Assessment and Plan: Patient had fever today for unclear source. RN states patietn was warm to touch but fever resolved quickly without intervention No symptoms to suggest source of infection Check CXR and UA. Hold abx Follow. If no more fevers, then discharge tomorrow. (2) Seizure: Code(s): R56.9 - Unspecified convulsions Status: Acute Assessment and Plan: Patient had 3 successive seizures in a row prior to admission. She had 1 seizure about a week ago but otherwise had been seizure-free since March after the adjustments of her medications. She has been compliant with the Keppra. The seizure probably related to the increasing alcohol use. Neurology consulted and appreciate their input. We resumed her Keppra and neuro recommended increasing the dose to 1gm Q12 which was done. MRI brain without contrast (IV became dislodged during the procedure) showing no acute intracranial process. Follow. Continue seizure precautions. Stop bupropion due to risk of side effects of seizures (3) Acute alcoholic intoxication: Qualifiers: Complication of substance-induced condition: with unspecified complication Qualified Code(s): F10.929 - Alcohol use, unspecified with intoxication, unspecified Code(s): F10.929 - Alcohol use, unspecified with intoxication, unspecified Status: Acute Assessment and Plan: Alcohol level was 300. Patient was educated about the benefits of abstaining from alcohol use. CIWA 0-3 since admission except with CIWA documented at 15 this morning and Ativan IV given. Continue CIWA protocol. Ativan available as needed for CIWA>15 and Librium prn for CIWA 8-15. Continue thiamine and folate. Tachycardia noted felt related to being off her metoprolol. EKG confirmed sinus mechanism. TSH normal. HR better controlled. (4) Hyponatremia: Code(s): E87.1 - Hypo-osmolality and hyponatremia Status: Acute Assessment and Plan: Sodium 131 probably related to dehydration from alcohol use due to poor oral intake and/or HCTZ use. Sodium level better. Continue her regular diet. (5) Essential (primary) hypertension: Code(s): I10 - Essential (primary) hypertension Status: Chronic Assessment and Plan: Blood pressure was normal on admission. Her systolic blood pressure did drop into the 90s overnight. Patient is on amlodipine, HCTZ, lisinopril and metoprolol at home. BP medications were on hold initially. Norvasc resumed then metoprolol added Monitor blood pressure and resume medications as needed. (6) Alcohol abuse: Code(s): F10.10 - Alcohol abuse, uncomplicated Status: Chronic Assessment and Plan: As above. Plan DVT prophylaxis -Lovenox Code status -full Subjective Date/time seen: 10/23/23 17:17 Interval history: 63yo female with alcoholism, seizure disorder, ALAN, depression with suicide attempt and HTN here for seizure activity.?? no cough or CP. She had fever earlier today. She had headache but no other symptoms. No n/v/d. No dysuria or heamturia. no rash. Temperature resolved without intervention. No pleuritic chest pain Exam Narrative: Tm 101.3 98.0 128/87 63 20 100% ra Gen - NARD Chest - CTA bilaterally, nml RR CV - RRR S1/S2; Tele showing no significant dysrhythmias Abd - Soft, NT/ND, Positive BS Ext - No pedal edema. Negative Michelle[facility] Neuro - Alert and oriented. Nonfocal exam. Psych - Nml mood and affect Skin - Warm and dry Objective Data Vital Signs Vital Signs: Vital Signs - 24 hr 10/22/23 18:00 10/22/23 20:23 10/23/23 00:04 Temperature 97.4 F L 97.4 F L Pulse Rate 77 79 62 Respiratory Rate 18 18 Blood Pressure 142/93 H 152/91 H Pulse Oximetry 99 99 Oxygen Delivery 10/22/23 20:00 10/22/23 22:00 10/23/23 00:00 [facility]
[2023-10-23] MEDS: amLODIPine BESYLATE 5 MG TABLET PO (17:45)
[2023-10-23] MEDS: MELATONIN 5 MG TABLET PO (21:02)
[2023-10-23] MEDS: traZODone HCL 50 MG TABLET PO (21:03)
[2023-10-23 21:27] LABS: Appearance Urine Clear (Clear); Bacteria Urine 1+ /hpf; Bilirubin Urine Negative (Negative); Blood Urine Negative (Negative); Color Urine Yellow (Yellow); Glucose Urine UA Negative (Negative); Ketones Urine Negative (Negative); Leukocyte Esterase Ur Trace LEU/UL (Negative); Nitrate Urine Negative (Negative); Non Pathogenic Casts 0-2; Protein Urine Negative (Negative); RBC Urine 0-2 /hpf (0-2); Specific Grav Ur 1.007 (1.001-1.035); Squamous Epithelial Cell Urine None Seen /hpf (Few); Urobilinogen Urine 0.2 mg/dL (<2.0); WBC Urine 0-5 /hpf (0-3); pH Urine 7.5 (5.0-9.0)
[2023-10-23 21:40] LABS: Add Urine Microscopic? YES
[2023-10-24] VITALS (10 sets, daily range): BP systolic 133–157; BP diastolic 87–94; PULSE 48–70; RESP 16–20; TEMP 36.3–37.1; O2SAT 96–100
[2023-10-24] MEDS: FLUoxetine HCL 20 MG CAPSULE PO ×2 (09:42→12:44)
[2023-10-24] MEDS: METOPROLOL SUCCINATE EXT REL 100 MG TABCR PO (09:42)
[2023-10-24] MEDS: CALCIUM/VITAMIN D 500 MG/5 MCG (200 I.U.) TABLET PO (09:42)
[2023-10-24] MEDS: ENOXAPARIN 40 MG/0.4 ML SYRINGE SUB-Q (09:42)
[2023-10-24] MEDS: FERROUS SULFATE 325 MG TABLET DR PO (09:43)
[2023-10-24] MEDS: PANTOPRAZOLE 40 MG TABLET PO (09:43)
[2023-10-24] MEDS: levETIRAcetam 500 MG TABLET 1000 MG PO (09:43)
[2023-10-24] MEDS: VITAMIN B COMPLEX CAPSULE 1 CAP PO (09:43)
[2023-10-24] MEDS: FOLIC ACID 1 MG TABLET PO (09:43)
--- NOTE | 2023-10-24 12:43 | PM.DS ---
DS: Admitting Diagnosis Discharge Date 10/24/2023 Admitting Diagnosis Seizures DS: Discharge Diagnosis Discharge Diagnosis (1) Fever: Code(s): R50.9 - Fever, unspecified Status: Acute Assessment and Plan: Patient had fever today for unclear source. RN states patient was warm to touch but fever resolved quickly without intervention No symptoms to suggest source of infection Cxr is clear pt ok to Dc today (2) Seizure: Code(s): R56.9 - Unspecified convulsions Status: Acute Assessment and Plan: Patient had 3 successive seizures in a row prior to admission. She had 1 seizure about a week ago but otherwise had been seizure-free since March after the adjustments of her medications. She has been compliant with the Keppra. The seizure probably related to the increasing alcohol use. Neurology consulted and appreciate their input. We resumed her Keppra and neuro recommended increasing the dose to 1gm Q12 which was done. MRI brain without contrast (IV became dislodged during the procedure) showing no acute intracranial process. Follow. Continue seizure precautions. Stop bupropion due to risk of side effects of seizures (3) Acute alcoholic intoxication: Qualifiers: Complication of substance-induced condition: with unspecified complication Qualified Code(s): F10.929 - Alcohol use, unspecified with intoxication, unspecified Code(s): F10.929 - Alcohol use, unspecified with intoxication, unspecified Status: Acute Assessment and Plan: Alcohol level was 300. Patient was educated about the benefits of abstaining from alcohol use. CIWA 0-3 since admission except with CIWA documented at 15 this morning and Ativan IV given. Continue CIWA protocol. Ativan available as needed for CIWA>15 and Librium prn for CIWA 8-15. Continue thiamine and folate. Tachycardia noted felt related to being off her metoprolol. EKG confirmed sinus mechanism. TSH normal. (4) Hyponatremia: Code(s): E87.1 - Hypo-osmolality and hyponatremia Status: Acute Assessment and Plan: Sodium 131 probably related to dehydration from alcohol use due to poor oral intake and/or HCTZ use. Sodium level better. Continue her regular diet. (5) Essential (primary) hypertension: Code(s): I10 - Essential (primary) hypertension Status: Chronic Assessment and Plan: Blood pressure was normal on admission. Her systolic blood pressure did drop into the 90s overnight. Patient is on amlodipine, HCTZ, lisinopril and metoprolol at home. BP medications were on hold initially. Norvasc resumed then metoprolol added Monitor blood pressure and resume medications as needed. (6) Alcohol abuse: Code(s): F10.10 - Alcohol abuse, uncomplicated Status: Chronic Assessment and Plan: As above. DS: Summary Hospital Course Hospital Course: 63yo female with alcoholism, seizure disorder, ALAN, depression with suicide attempt and HTN here for seizure activity.? Patient had a seizure disorder when she was a child but had been in remission since age 6.? Seizures resumed she turned 60 years old.? She had been on 2 antiepileptic medications for a few years but in March she was weaned off 1 medication and her Keppra was increased to 750 mg Q 12.? Since that time, she had been seizure-free up until 1 week ago when she had a seizure.? She did not seek medical care for that.? She on the day prior to admission, patient had 3 successive seizures in a row lasting up to 30 seconds each.? She was standing in the kitchen when she collapsed.? Her was able to catch her and lower her to the ground.? He does not believe that there was head trauma.? No tongue biting but did have urine incontinence.? states patient was confused after the seizure.? Patient was shaking and was stiff with arms stretched.? Patient has been compliant with her Keppra.? She has a history of al
== END 2023-10-24 13:59 | disposition home or self-care (01) | DRG 101 ==
LOC: ANHED 10-20 01:22 → ANHIMU 10-20 03:15
PROVIDERS: Internal Medicine; Admitting Provider Internal Medicine; Emergency Provider Emergency Medicine; PCP Family Medicine; Visit Provider Family Medicine
DX: G40.89 Other seizures (principal); E87.1 Hypo-osmolality and hyponatremia; F10.229 Alcohol dependence with intoxication, unspecified; Y90.8 Blood alcohol level of 240 mg/100 ml or more; R50.9 Fever, unspecified; G40.909 Epilepsy, unspecified, not intractable, without status epilepticus; I95.9 Hypotension, unspecified; M81.0 Age-related osteoporosis without current pathological fracture; I10 Essential (primary) hypertension; K21.9 Gastro-esophageal reflux disease without esophagitis; E78.5 Hyperlipidemia, unspecified; G47.33 Obstructive sleep apnea (adult) (pediatric); F17.210 Nicotine dependence, cigarettes, uncomplicated; Z85.41 Personal history of malignant neoplasm of cervix uteri; Z90.710 Acquired absence of both cervix and uterus
CPT/HCPCS: 36415; 70450; 70551; 71046; 80048; 80053; 80307; 81001; 82607; 82746; 82948; 84443; 84484; 85025; 93005; 96365; 99285; A9270; G0378; J1650; J1953; J2060; J3411; J7030

== ENCOUNTER 2023-12-08 08:58 | Outpatient (CLI) | payer OTHER, SELFPAY ==
--- NOTE | ~2023-12-08 | MM_ITS ---
EXAMINATION: MM screening [facility] BI w joshua HISTORY: Screening mammogram TECHNIQUE: Craniocaudal and mediolateral oblique 3-D tomosynthesis images were obtained and synthetic 2-D images were generated. CAD analysis was submitted and interpreted. COMPARISON: 12/07/2021, 09/11/2019 BREAST PARENCHYMAL COMPOSITION:Dense: The breasts are heterogeneously dense, which may obscure small masses. FINDINGS: No suspicious mass, calcification, or architectural distortion are identified in either archana ast to suggest malignancy. There has been no suspicious interval change. IMPRESSION: No mammographic evidence of malignancy. Recommend routine screening mammography in one year. BI-RADS Category 1: Negative Reviewed, dictated and finalized at location .
== END 2023-12-08 08:59 | disposition home or self-care (01) ==
LOC: ANHIMG 08:59
PROVIDERS: PCP Family Medicine; Visit Provider Nurse Practitioner Family
DX: Z12.31 Encounter for screening mammogram for malignant neoplasm of breast (principal)
CPT/HCPCS: 77063; 77067

== ENCOUNTER 2023-12-08 09:57 | Outpatient (CLI) | payer OTHER, SELFPAY ==
[2023-12-08 12:47] LABS: Basophils Percent Auto 0.7 % (0.2-1.2); Eosinophils Percent Auto 0.4 % (0-4.4); Hematocrit 35.8 % (37.0-47.0); Hemoglobin 12.2 g/dL (12.0-15.0); Immature Granulocyte Absolute 0.02 K/mm3 (0.00-0.031); Immature Granulocyte Percent A 0.4 % (0-0.5); Lymphocytes Absolute Auto 0.98 K/mm3 (0.9-3.2); Lymphocytes Percent Auto 17.4 % (18.3-44.2); Mean Corpuscular HGB Conc 34.1 g/dl (32-36); Mean Corpuscular Hemoglobin 33.4 pg (26-34); Mean Corpuscular Volume 98.1 fl (80-100); Mean Platelet Volume 10.8 fl (7.4-10.4); Monocytes Absolute Auto 0.8 K/mm3 (0.1-0.6); Monocytes Percent Auto 14.6 % (2.6-8.5); Neutrophils Absolute Auto 3.7 K/mm3 (1.3-6.7); Neutrophils Percent Auto 66.5 % (45.5-73.1); Platelet Count Result 287 k/mm3 (150-375); Red Blood Count 3.65 M/mm3 (4.2-5.4); Red Cell Distribution Width 13.5 % (11.5-14.5); White Blood Count 5.6 K/mm3 (4.5-10.0)
[2023-12-08 12:59] LABS: LDL Cholesterol Direct 53 mg/dL
[2023-12-08 13:11] LABS: Alanine Aminotransferase 35 U/L (6-35); Albumin Level 4.8 g/dL (3.5-5.1); Alkaline Phosphatase 77 U/L (38-126); Anion Gap 9 mmol/L (4-12); Aspartate Amino Transferase 75 U/L (14-36); Bilirubin,Total 1.3 mg/dL (0.2-1.3); Blood Urea Nitrogen 17 mg/dL (7-17); Calcium 9.4 mg/dL (8.4-10.2); Carbon Dioxide 30 mmol/L (22-30); Chloride 87 mmol/L (98-107); Cholesterol 251 mg/dL (0-200); Estimated Glomerular Filt Rate 56; Glucose 93 mg/dL (65-110); Potassium 4.3 mmol/L (3.4-5.0); Sodium 126 mmol/L (137-145); Triglycerides 71 mg/dL (<150)
[2023-12-08 16:02] LABS: HDL Direct 206 mg/dL
[2023-12-09 09:40] LABS: Levetiracetam Keppra 40.6 mcg/mL (6.0-46.0)
[2023-12-13 14:53] LABS: Vitamin D 1,25 (OH)2 Total 32 pg/mL (18-72); Vitamin D2 1,25 (OH)2 <8 pg/mL; Vitamin D3 1,25 (OH)2 32 pg/mL
== END 2023-12-08 09:58 | disposition home or self-care (01) ==
LOC: ANHGOSHLAB 09:58
PROVIDERS: PCP Family Medicine; Visit Provider Nurse Practitioner Family
DX: E55.9 Vitamin D deficiency, unspecified (principal); I10 Essential (primary) hypertension; R74.8 Abnormal levels of other serum enzymes; E78.5 Hyperlipidemia, unspecified; R56.9 Unspecified convulsions
CPT/HCPCS: 36415; 80053; 80061; 80177; 82652; 85025

== ENCOUNTER 2024-05-07 08:20 | Outpatient (CLI) | payer OTHER, SELFPAY ==
[2024-05-07 12:06] LABS: Basophils Percent Auto 0.8 % (0.2-1.2); Eosinophils Absolute Auto 0.1 K/mm3 (0-0.3); Eosinophils Percent Auto 1.1 % (0-4.4); Hematocrit 33.8 % (37.0-47.0); Immature Granulocyte Absolute 0.03 K/mm3 (0.00-0.031); Immature Granulocyte Percent A 0.6 % (0-0.5); Lymphocytes Absolute Auto 1.54 K/mm3 (0.9-3.2); Lymphocytes Percent Auto 29.5 % (18.3-44.2); Mean Corpuscular HGB Conc 32.5 g/dl (32-36); Mean Corpuscular Hemoglobin 34.8 pg (26-34); Mean Platelet Volume 10.5 fl (7.4-10.4); Monocytes Absolute Auto 0.8 K/mm3 (0.1-0.6); Monocytes Percent Auto 15.5 % (2.6-8.5); Neutrophils Absolute Auto 2.7 K/mm3 (1.3-6.7); Neutrophils Percent Auto 52.5 % (45.5-73.1); Platelet Count Result 244 k/mm3 (150-375); Red Blood Count 3.16 M/mm3 (4.2-5.4); Red Cell Distribution Width 13.4 % (11.5-14.5); White Blood Count 5.2 K/mm3 (4.5-10.0)
[2024-05-07 12:33] LABS: Alanine Aminotransferase 31 U/L (6-35); Albumin Level 4.1 g/dL (3.5-5.1); Alkaline Phosphatase 71 U/L (38-126); Anion Gap 4 mmol/L (4-12); Aspartate Amino Transferase 42 U/L (14-36); Bilirubin,Total 0.4 mg/dL (0.2-1.3); Blood Urea Nitrogen 24 mg/dL (7-17); Calcium 9.5 mg/dL (8.4-10.2); Carbon Dioxide 30 mmol/L (22-30); Chloride 100 mmol/L (98-107); Estimated Glomerular Filt Rate 50; Glucose 87 mg/dL (65-110); Macrocytosis 1+ (NORMAL); Platelet Estimate Adequate (Adequate); Potassium 4.4 mmol/L (3.4-5.0); Schistocytes None Seen; Sodium 134 mmol/L (137-145)
== END 2024-05-07 08:21 | disposition home or self-care (01) ==
LOC: ANHGOSHLAB 08:21
PROVIDERS: PCP Family Medicine; Visit Provider Nurse Practitioner Family
DX: D50.9 Iron deficiency anemia, unspecified (principal); E87.1 Hypo-osmolality and hyponatremia; Z78.0 Asymptomatic menopausal state
CPT/HCPCS: 36415; 80053; 85025

== ENCOUNTER 2024-09-17 09:52 | Outpatient (CLI) | payer OTHER, SELFPAY ==
--- OUTSIDE RECORDS SUMMARY | 2024-09-17 10:51 | XMS_ITS | Referral Summary ---
Author Organization [facility] Address [address] [place] [address] Care Team Providers Care Photolith Operator Name Role Phone Shila Cruz MD Unavailable [phone] Kevin Linares MD Primary Care Provider Encounters Date Type Department Care Team Description 06/26/2024 9:00 AM HOSPICE CASE MANAGER Telemedicine [facility] Neuro Sleep [address] [facility] 6th [address] [place] [id number] Jeannine Masterson MD Severe obstructive sleep apnea (Primary Dx) from Last 3 Months Allergies Active Allergy Reactions Criticality Noted Date Comments Penicillins Unknown,Mental statu s changes Low 03/19/2021 seizure per pt/ report Zonisamide Agitation,Anxiety,He adac he,Other (See comments) Low 07/08/2021 Medications metoprolol XL (TOPROL-XL) 100 mg 24 hr tablet Take 1 tablet (100 mg total) by mouth daily 03/17/20 21 Active ibandronate (BONIVA) 150 mg tablet Take 1 tablet (150 mg total) by mouth every 30 (thirty) days 03/17/20 21 Active traZODone (DESYREL) 50 mg tablet Take 1 tablet (50 mg total) by mouth nightly as needed 03/17/20 21 Active lisinopriL (PRINIVIL,ZEST RIL) 20 mg tablet Take 1 tablet (20 mg total) by mouth 2 (two) times a day 12/28/19 21 Active fluticasone propionate (FLONASE) 50 mcg/actuation nasal spray SHAKE LIQUID AND USE 2 SPRAYS IN EACH NOSTRIL DAILY 01/20/20 21 Active amLODIPine (NORVASC) 5 mg tablet Take 1 tablet (5 mg total) by mouth daily 12/22/19 21 Active FLUoxetine (PROzac) 20 mg capsule Take 1 capsule (20 mg total) by mouth 3 (three) times a day 03/08/20 21 Active omeprazole (PriLOSEC) 20 mg capsule Take 1 capsule (20 mg total) by mouth daily 01/26/20 21 Active alendronate (FOSAMAX) 10 mg tablet Take 1 tablet (10 mg total) by mouth daily before breakfast Take in the morning with a full glass of water, on an empty stomach, and do not take anything else by mouth or lie down for the next 30 min. Active iron 18 mg tablet Take by mouth Active vitamin B complex capsule Take 1 capsule by mouth daily Active iron bisgly,ps-FA-B -C#12-succ 65 mg-65 mg -1,000 mcg (24) tablet Take by mouth Acti ve calcium citrate 250 mg calcium tablet tablet Active hydroCHLOROthi azide (MICROZIDE) 12.5 mg capsule 06/26/19 24 Active buPROPion (WELLBUTRIN) 75 mg tablet 02/29/20 22 Active levETIRAcetam (KEPPRA) 750 mg tablet TAKE 1 TABLET(750 MG) BY MOUTH TWICE DAILY 60 tablet 09/03/19 25 Active levETIRAcetam (KEPPRA) 750 mg tablet Take 1 tablet (750 mg total) by mouth 2 (two) times a day 60 tablet 07/30/19 25 025 Discontinued Active Problems Problem Noted Date Diagnosed Date Cerebrovascular accident (CVA) 06/26/2024 Retrognathia 01/19/2022 Severe obstructive sleep apnea 10/26/2021 Depression with anxiety 03/20/2021 Assessment & Plan (03/20/2021 8:27 AM CDT): -Continue home prozac 20mg TID, trazodone 50 QHS PRN Alcohol use disorder, moderate Assessment & Plan (03/21/2021 8:48 AM CDT): A: Drinking bottle of wine per day; up to 2-2.5 bottles per day at least once weekly. History of prior rehab treatment but no withdrawal. Last drink 03/18 P: -discussed with patient that she needs to stop drinking etoh given the unknown cause of her seizures Assessment & Plan (03/20/2021 8:31 AM CDT): Drinking bottle of wine per day; up to 2-2.5 bottles per day at least once weekly. History of prior rehab treatment but no withdrawal. Last drink 03/18 -CIWA monitoring -Folate/thiamine/MVI -SW c/s for resources Hypertension Assessment & Plan (03/20/2021 8:27 AM CDT): -Continue home lisinopril 20 BID, amlodipine 5, metop 100mg XL Seizure Assessment & Plan (03/21/2021 8:49 AM CDT): A: Presented with seizure activity. Per neuro, consistent with focal onset seizure with rapid secondary generalization complicated by Meet's paresis vs generalized onset seizure. Etiology structural vs idiopathic; possibly related to etoh use/withdrawal though no other symptoms of withdrawal presently CTA H/N neg, only mild electrolyte abnormalities, no e/o infectious process P: DC on Keppra 500mg BID -Outpatient neuro f/u arranged - dc home today Assessment & Plan (03/20/2021 8:34 AM CDT): Presented with seizure activity. Per neuro, consistent with focal onset seizure with rapid secondary generalization complicated by Meet's paresis vs generalized onset seizure. Etiology structural vs idiopathic; possibly related to etoh use/withdrawal though no other symptoms of withdrawal presently CTA H/N neg, only mild electrolyte abnormalities, no e/o infectious process -s/p Keppra load; continue 500mg BID -Outpatient neuro f/u; referral sent -CIWA monitoring -seizure/fall precautions Elevated lactic acid level Assessment & Plan (03/20/2021 8:35 AM CDT): 2/2 seizure, downtrended High anion gap metabolic acidosis Assessment & Plan (03/20/2021 8:36 AM CDT): Likely 2/2 lactic acidosis in setting of seizure -Trend BMP with normalization of lactate Hyponatremia Assessment & Plan (03/20/2021 8:36 AM CDT): Mild 132 -500cc NS Elevated troponin I level Assessment & Plan (03/20/2021 8:37 AM CDT): Troponin elevated to peak of 412, downtrended No ischemic symptoms. EKG w/o acute ischemic change Likely 2/2 demand from seizure; unlikely NSTEMI -Telemetry monitoring for initial period Social History Tobacco Use Types Packs/Day Years Used Date Smoking Tobacco: Every Day Vaping Started: 03/20/2005 Smokeless Tobacco: Never Tobacco Cessation:Ready to Q uit: Not Asked; Counseling Given: Not Answered Comments:STOPPED CIGARETTES 2002 AUDIT-C Answer Date Recorded Frequency of Alcohol Consumption Not on file 01/05/2022 Q2: How many drinks containi ng alcohol do you have on a typical day when you are drinking? 7 to 9 01/05/2022 Frequency of Binge Drinking Not on file 12/11 Comments Unknown Sex and Gender Information Value Date Recorded Sex Assigned at Not on file Legal Sex Female 4:02 AM HOSPICE CASE MANAGER Gender Identity Not on file Sexual Orientation Not on file Last Filed Vital Signs Vital Sign Reading Time Taken Comments Blood Pressure 123/81 08/02/2023 7:37 AM HOSPICE CASE MANAGER Pulse 56 08/02/2023 7:37 AM HOSPICE CASE MANAGER Temperature 36.5 C (97.7 F) 08/02/2023 7:37 AM HOSPICE CASE MANAGER Respiratory Rate 18 07/05/2021 12:32 PM HOSPICE CASE MANAGER Oxygen Saturation 100% 08/02/2023 7:37 AM HOSPICE CASE MANAGER Inhaled Oxygen Concentration - - Weight 57.2 kg (126 lb) 06/26/2024 9:00 AM HOSPICE CASE MANAGER Height 162.6 cm (5' 4 ) 06/26/2024 9:00 AM HOSPICE CASE MANAGER Body Mass Index 21.63 06/26/2024 9:00 AM HOSPICE CASE MANAGER Plan of Treatment Not on file Insurance [facility] CLAIMS [employer] CHOICE MEDICARE PPO [facility] Advance Directives For more information, please contact: [phone] * Full Code (Latest Code Status on File) Date Activated Date Inactivated Comments 03/20/2021 12:37 PM 03/21/2021 4:31 PM Care Teams Photolith Operator Relationship Specialty Start Date End Date Kevin Linares MD [address] [facility] [address] [address] PCP - General Family Practice 01/18/23 Shila Cruz MD Consulting Physician Neurology 01/05/22
--- OUTSIDE RECORDS SUMMARY | 2024-09-17 10:51 | XMS_ITS | Clinical Summary ---
Author Organization [facility] Address [address] [place] [address] Care Team Providers Care Painter Helper Spray Name Role Phone Shila Cruz MD Unavailable [phone] Kevin Linares MD Primary Care Provider Allergies Active Allergy Reactions Criticality Noted Date [...] withdrawal. Last drink 03/18 -CIWA monitoring -Folate/thiamine/MVI - c/s for resources Hypertension Assessment & Plan [...] unlikely NSTEMI -Telemetry monitoring for initial period Encounters Date Type Department Care Team Description 06/26/2024 9:00 AM PHYSICAL THERAPY INSTRUCTOR Telemedicine [facility] Neuro Sleep [address] [facility] [facility] 6th [address] [place] [address] Jeannine Masterson MD Severe obstructive sleep apnea (Primary Dx) from Last 3 Months Medical History Medical History Date Comments Hypertension ETOH abuse Social History Tobacco Use Types Packs/Day Years [...] on file Legal Sex Female 4:02 AM PHYSICAL THERAPY INSTRUCTOR Gender Identity Not on file Sexual Orientation Not on file Obstetrics History Last Filed Vital Signs Vital Sign Reading Time Taken Comments Blood Pressure 123/81 08/02/2023 7:37 AM PHYSICAL THERAPY INSTRUCTOR Pulse 56 08/02/2023 7:37 AM PHYSICAL THERAPY INSTRUCTOR Temperature 36.5 C (97.7 F) 08/02/2023 7:37 AM PHYSICAL THERAPY INSTRUCTOR Respiratory Rate 18 07/05/2021 12:32 PM PHYSICAL THERAPY INSTRUCTOR Oxygen Saturation 100% 08/02/2023 7:37 AM PHYSICAL THERAPY INSTRUCTOR Inhaled Oxygen Concentration - - Weight 57.2 kg (126 lb) 06/26/2024 9:00 AM PHYSICAL THERAPY INSTRUCTOR Height 162.6 cm (5' 4 ) 06/26/2024 9:00 AM PHYSICAL THERAPY INSTRUCTOR Body Mass Index 21.63 06/26/2024 9:00 AM PHYSICAL THERAPY INSTRUCTOR Plan of Treatment Health Maintenance Due Date Last Done Comments Breast Cancer Screening-Mammogram 1960 Cervical Cancer Screening 1960 Colon Cancer Screening-Colonoscopy 1960 Depression Screening 1960 Hepatitis C Screening 1960 DTaP/Tdap/Td Vaccine (1 - Tdap) 1971 Hepatitis B Screening 1978 Regular Well Visit/Exam 18-64 1978 Pneumococcal vaccine <65 (1 of 2 - PCV) 1979 Zoster Vaccine (1 of 2) 2010 Covid-19 Vaccine ( - season) 2024 07/09/2021, 10/04/2020, 09/06/2020 Influenza Vaccine (#1) 2024 Insurance [facility] CLAIMS [employer] CHOICE MEDICARE PPO [facility] Advance Directives For more information, please contact: [phone] * Full Code (Latest Code Status on File) Date Activated Date Inactivated Comments 03/20/2021 12:37 PM 03/21/2021 4:31 PM Care Teams Painter Helper Spray Relationship Specialty Start Date End Date Kevin Linares MD [address] [facility] [address] [address] PCP - General Family Practice 01/18/23 Shila Cruz MD Consulting Physician Neurology 01/05/22
--- OUTSIDE RECORDS SUMMARY | 2024-09-17 10:51 | XMS_ITS | Encounter Summary ---
Author Organization [facility] Address [address] [place] [address] Care Team Providers Care Oceanologist Name Role Phone Kevin Linares MD Primary Care Provider Dick German MD Primary Care Provider [phone] hSila Cruz MD Unavailable [phone] Kevin Linares MD Primary Care Provider Encounter Details Date Type Department Care Team (Late st Contact Info) Description 04/30/2021 Telephone [facility] Radiology [address] [place] [address] Antwan Cochran MD [address] [place] [address] Social History Tobacco Use Types Packs/Day Years Used Date Smoking Tobacco: Every Day Vaping Started: 03/20/2005 Smokeless Tobacco: Never Comments Unknown Sex and Gender Information Value Date Recorded Sex Assigned at Not on file Legal Sex Female 4:02 AM ABRASIVE WORKER Gender Identity Not on file Sexual Orientation Not on file documented as of this encounter Plan of Treatment Not on file documented as of this encounter Visit Diagnoses Not on filedocumented in this encounter Care Teams Oceanologist Relationship Specialty Start Date End Date Kevin Linares MD PCP - General Family Practice 04/29/21 12/30/21 Dick German MD [address] [place] [address] PCP - General Family Practice 12/31/21 01/17/23 Kevin Linares MD [address] [facility] [address] [place] [address] [place] [id number] PCP - General Family Practice 01/18/23 Shila Cruz MD [address] [place] [address] Consulting Physician Neurology 01/05/22 documented as of this encounter
[2024-09-17 16:05] LABS: Alanine Aminotransferase 24 U/L (6-35); Albumin Level 4.2 g/dL (3.5-5.1); Alkaline Phosphatase 58 U/L (38-126); Anion Gap 8 mmol/L (4-12); Aspartate Amino Transferase 32 U/L (14-36); Bilirubin,Total 0.3 mg/dL (0.2-1.3); Blood Urea Nitrogen 18 mg/dL (7-17); Calcium 9.1 mg/dL (8.4-10.2); Carbon Dioxide 28 mmol/L (22-30); Chloride 102 mmol/L (98-107); Cholesterol 185 mg/dL (0-200); Estimated Glomerular Filt Rate 60; Glucose 91 mg/dL (65-110); HDL Direct 88 mg/dL; Potassium 4.2 mmol/L (3.4-5.0); Sodium 138 mmol/L (137-145); Triglycerides 53 mg/dL (<150)
[2024-09-17 16:15] LABS: Vitamin D 25 Hydroxy 60.1 ng/mL
[2024-09-17 16:29] LABS: Thyroid Stimulating Hormone Reflex 0.739 uIU/mL (0.465-4.68)
[2024-09-17 16:53] LABS: LDL Cholesterol Direct 70 mg/dL
[2024-09-17 17:22] LABS: Basophils Percent Auto 0.6 % (0.2-1.2); Eosinophils Percent Auto 0.6 % (0-4.4); Hematocrit 39.9 % (37.0-47.0); Hemoglobin 12.5 g/dL (12.0-15.0); Immature Granulocyte Absolute 0.02 K/mm3 (0.00-0.031); Immature Granulocyte Percent A 0.3 % (0-0.5); Lymphocytes Absolute Auto 1.34 K/mm3 (0.9-3.2); Lymphocytes Percent Auto 21.3 % (18.3-44.2); Mean Corpuscular HGB Conc 31.3 g/dl (32-36); Mean Corpuscular Hemoglobin 30.7 pg (26-34); Mean Platelet Volume 12.8 fl (7.4-10.4); Monocytes Absolute Auto 0.7 K/mm3 (0.1-0.6); Monocytes Percent Auto 11.6 % (2.6-8.5); Neutrophils Absolute Auto 4.1 K/mm3 (1.3-6.7); Neutrophils Percent Auto 65.6 % (45.5-73.1); Platelet Count Result 193 k/mm3 (150-375); Red Blood Count 4.07 M/mm3 (4.2-5.4); Red Cell Distribution Width 12.8 % (11.5-14.5); White Blood Count 6.3 K/mm3 (4.5-10.0)
[2024-09-18 12:59] LABS: Levetiracetam Keppra 35.5 mcg/mL (6.0-46.0)
== END 2024-09-17 09:53 | disposition home or self-care (01) ==
LOC: ANHGOSHLAB 09:52
PROVIDERS: PCP Family Medicine; Visit Provider Nurse Practitioner Family
DX: R56.9 Unspecified convulsions (principal); I10 Essential (primary) hypertension; E55.9 Vitamin D deficiency, unspecified; D64.9 Anemia, unspecified; E78.5 Hyperlipidemia, unspecified
CPT/HCPCS: 36415; 80053; 80061; 80177; 82306; 82607; 84443; 85025

== ENCOUNTER 2025-02-03 13:53 | Outpatient (CLI) | payer OTHER, SELFPAY ==
--- NOTE | ~2025-02-03 | DEXA_ITS ---
Bone Density Report Name: MARJORIE LAGUNA Age: 64 Sex: Female Ethnicity: White Date of : 1960 Indication: postmenopausal osteoporosis; monitoring treatment; height loss; prior fracture; cancer; seizure disorder; hysterectomy; rheumatoid arthritis; secondary osteoporosis; Referring Provider: BISMARK CLOUD Study: Bone densitometry was performed. Exam Date: February 03, 2025 Accession number: [id number] Bone Density: Region BMD T-score Z-score Classification AP Spine(L1-L4) 0.658 -3.5 -1.8 Osteoporosis Femoral Neck (Left) 0.568 -2.5 -1.0 Osteoporosis Total Hip (Left) 0.796 -1.2 0.0 Osteopenia Femoral Neck (Right) 0.554 -2.7 -1.2 Osteoporosis Total Hip (Right) 0.758 -1.5 -0.3 Osteopenia Total Hip Mean 0.777 -1.4 -0.2 Osteopenia World Health Organization criteria for BMD impression classify patients as: Normal (T-score at or above -1.0), Osteopenia (T-score between -1.0 and -2.5), or Osteoporosis (T-score at or below -2.5). 10-year Fracture Risk: FRAX not reported because: Some T-score for Spine Total or Hip Total or Femoral Neck at or below -2.5 Treated for osteoporosis Previous Exams: Region Exam Age BMD T-score BMD Change BMD Change Date g/cm2 vs Baseline vs Previous AP Spine (L1-L4) 02/03/2025 64 0.658 -3.5 -0.051 (-7.2%) -0.039 (-5.7%) 02/10/2022 61 0.698 -3.2 -0.012 (-1.7%) 0.047 (7.2%)* 09/11/2019 59 0.651 -3.6 -0.059 (-8.2%) -0.059 (-8.2%) 07/15/2016 56 0.710 -3.1 Total Hip(Left) 02/03/2025 64 0.796 -1.2 -0.041 (-4.9%) 0.013 (1.7%) 02/10/2022 61 0.783 -1.3 -0.054 (-6.5%) -0.026 (-3.2%) 09/11/2019 59 0.809 -1.1 -0.028 (-3.4%) -0.028 (-3.4%) 07/15/2016 56 0.837 -0.9 Total Hip(Right) 02/03/2025 64 0.758 -1.5 -0.042 (-5.3%) -0.004 (-0.6%) 02/10/2022 61 0.762 -1.5 -0.038 (-4.7%) 0.005 (0.7%) 09/11/2019 59 0.757 -1.5 -0.043 (-5.4%) -0.043 (-5.4%) 07/15/2016 56 0.800 -1.2 *Denotes significance at 95% confidence level, LSC for AP Spine = 0.022 g/cm2, LSC for Total Hip = 0.027 g/cm2 Clinical Information Provided by Patient: Has had a low trauma fracture Smokes Has rheumatoid arthritis Has secondary osteoporosis Is being treated for osteoporosis Has used the following medications: Vitamin D, Calcium Has the following medical conditions: Any Seizure Disorders, Cancer, Hysterectomy Patient maximum height was 64.0 Menopause Age: 43 No regular weight bearing exercise Does not regularly consume dairy products Drinks caffeinated beverages Onset of menses at age 12 Number of children 3 Missed period for more than 6 months in a row Impression: The patient has established osteoporosis, based on the Total Spine T-score and the existence of a prior fracture. The patient has risk factors, including: smoking, previous fracture. The BMD for the AP Spine (L1-L4) decreased, changing by -5.7% since the last DXA exam. Discussion: SIGNIFICANT BONE LOSS OBSERVED. Adherence to therapy (including calcium and vitamin D intake) should be assessed. If compliance is not a factor, review management and exclusion of secondary causes of bone loss. It is important to ask patients whether they are taking their medications and to encourage continued and appropriate compliance with their osteoporosis therapies to reduce fracture risk. It is also important to review their risk factors and encourage appropriate calcium and vitamin D intakes, exercise, fall prevention and other lifestyle measures. Follow-Up: Consider a repeat BMD and Vertebral Fracture Assessment (VFA) exam in 2 years or sooner if medically necessary, to reassess this patient's status. Reported by: JOSS on 02/03/2025 2:31:00 PM. Reviewed, dictated and finalized at location A.
--- OUTSIDE RECORDS SUMMARY | 2025-02-03 13:59 | XMS_ITS | Clinical Summary ---
Author Organization [facility] Address [address] [place] [address] Care Team Providers Care Clinical Science Liaison Name Role Phone Shila Cruz MD Unavailable Kevin Linares MD Primary Care Provider Allergies Active Allergy Reactions Criticality Noted Date Comments Penicillins Unknown,Mental statu s changes Low 03/19/2021 seizure per pt/ report Zonisamide Agitation,Anxiety,He adac he,Other (See comments) Low 07/08/2021 Medications metoprolol XL (TOPROL-XL) 100 mg 24 hr tablet Take 1 tablet (100 mg total) by mouth daily 1 Active ibandronate (BONIVA) 150 mg tablet Take 1 tablet (150 mg total) by mouth every 30 (thirty) days 1 Active traZODone (DESYREL) 50 mg tablet Take 1 tablet (50 mg total) by mouth nightly as needed 1 Active lisinopriL (PRINIVIL,ZESTR [place]) 20 mg tablet Take 1 tablet (20 mg total) by mouth 2 (two) times a day 1 Active fluticasone propionate (FLONASE) 50 mcg/actuation nasal spray SHAKE LIQUID AND USE 2 SPRAYS IN EACH NOSTRIL DAILY 1 Active amLODIPine (NORVASC) 5 mg tablet Take 1 tablet (5 mg total) by mouth daily 1 Active FLUoxetine (PROzac) 20 mg capsule Take 1 capsule (20 mg total) by mouth 3 (three) times a day 1 Active omeprazole (PriLOSEC) 20 mg capsule Take 1 capsule (20 mg total) by mouth daily 1 Active alendronate (FOSAMAX) 10 mg tablet Take [...] 1 capsule by mouth daily Active iron bisgly,ps-FA-B- C#12-succ 65 mg-65 mg -1,000 mcg (24) tablet Take by mouth Active calcium citrate 250 mg calcium tablet tablet Active hydroCHLOROthia zide (MICROZIDE) 12.5 mg capsule 4 Active buPROPion (WELLBUTRIN) 75 mg tablet 2 Active levETIRAcetam (KEPPRA) 750 mg tablet TAKE 1 TABLET(750 MG) BY MOUTH TWICE DAILY 60 tablet 5 Active Active Problems Problem Noted Date Diagnosed Date [...] rehab treatment but no withdrawal. Last drink 10/7 -CIWA monitoring -Folate/thiamine/MVI - c/s for resources [...] unlikely NSTEMI -Telemetry monitoring for initial period Medical History Medical History Date Comments Hypertension [...] on file Legal Sex Female 4:02 AM TRASHMAN Gender Identity Not on file Sexual Orientation Not on file Obstetrics History Last Filed Vital Signs Vital Sign Reading Time Taken Comments Blood Pressure 123/81 08/02/2023 7:37 AM TRASHMAN Pulse 56 08/02/2023 7:37 AM TRASHMAN Temperature 36.5 C (97.7 F) 08/02/2023 7:37 AM TRASHMAN Respiratory Rate 18 07/05/2021 12:32 PM TRASHMAN Oxygen Saturation 100% 08/02/2023 7:37 AM TRASHMAN Inhaled Oxygen Concentration - - Weight 57.2 kg (126 lb) 06/26/2024 9:00 AM TRASHMAN Height 162.6 cm (5' 4) 06/26/2024 9:00 AM TRASHMAN Body Mass Index 21.63 06/26/2024 9:00 AM TRASHMAN Plan of Treatment Health Maintenance Due Date [...] 2024 07/09/2021, 10/04/2020, 09/06/2020 Influenza Vaccine (#1) 2025 Insurance [employer] CHO[employer] MEDICARE PPO Member Subscriber Plan / Payer (Ef fective 2021-Present) Name:Amanda Becerra Relation to Subscriber:Self Name:Amanda Becerra Payer ID:[id number] (NAIC) Group ID:Not on file Type:MEDICARE RISK OTHER Address: [address] [facility] Advance Directives For more information, please contact: [phone] * Full Code (Latest Code Status on File) Date Activated Date Inactivated Comments 03/20/2021 12:37 PM 03/21/2021 4:31 PM Care Teams Clinical Science Liaison Relationship Specialty Start Date End Date Kevin Linares MD [facility] [address] [address] PCP - General Family Practice 01/18/23 Shila Cruz MD Consulting Physician Neurology 01/05/22
--- OUTSIDE RECORDS SUMMARY | 2025-02-03 13:59 | XMS_ITS | Encounter Summary ---
Author Organization [facility] Healthcare Address [address] [place] [address] Care Team Providers Care Hub Associate Name Role Phone Kevin Linares MD Primary Care Provider Dick German MD Primary Care Provider [phone] Shila Cruz MD Unavailable [phone] Kevin Linares MD Primary Care Provider Encounter Details Date Type Department Care Team (Late st Contact Info) Description 04/30/2021 Telephone [facility] Radiology [address] [place] [address] Antwan Cochran MD [address] [place] [address] Social History Tobacco Use Types Packs/Day Years Used Date Smoking Tobacco: Every Day Vaping Started: 03/20/2005 Smokeless Tobacco: Never Comments Unknown Sex and Gender Information Value Date Recorded Sex Assigned at Not on file 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 Gender Identity Not on file Sexual Orientation Not on file documented as of this encounter Plan of Treatment Not on file documented as of this encounter Visit Diagnoses Not on filedocumented in this encounter Care Teams Hub Associate Relationship Specialty Start Date End Date Kevin Linares MD PCP - General Family Practice 04/29/21 12/30/21 Dick German MD [address] [place] [address] PCP - General Family Practice 12/31/21 01/17/23 Kevin Linares MD [address] [place] [address] [place] [id number] PCP - General Family Practice 01/18/23 Shila Cruz MD [address] [place] [address] Consulting Physician Neurology 01/05/22 documented as of this encounter
== END 2025-02-03 13:54 | disposition home or self-care (01) ==
LOC: ANHFOHIMG 13:54
PROVIDERS: PCP Family Medicine; Visit Provider Nurse Practitioner Family
DX: Z78.0 Asymptomatic menopausal state (principal); M81.0 Age-related osteoporosis without current pathological fracture; M85.852 Other specified disorders of bone density and structure, left thigh; M85.851 Other specified disorders of bone density and structure, right thigh
CPT/HCPCS: 77080

== ENCOUNTER 2025-02-24 09:30 | Outpatient (CLI) | payer OTHER, SELFPAY ==
--- OUTSIDE RECORDS SUMMARY | 2025-02-24 10:26 | XMS_ITS | Encounter Summary ---
Author Organization [facility] Healthcare Address [address] [place] [address] Care Team Providers Care Board Finisher Name Role Phone Kevin Linares MD Primary Care Provider Dick German MD Primary Care Provider [phone] Shila Cruz MD Unavailable [phone] Kevin Linares MD Primary Care Provider Encounter Details Date Type Department Care Team (Late st Contact Info) Description 04/30/2021 Telephone [facility]iology [address] [place] [address] Antwan Cochran MD [address] [place] [address] Social History Tobacco Use Types Packs/Day Years Used Date Smoking Tobacco: Every Day Vaping Started: 03/20/2005 Smokeless Tobacco: Never Comments Unknown Sex and Gender Information Value Date Recorded Sex Assigned at Not on file 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 Gender Identity Not on file Sexual Orientation Not on file documented as of this encounter Plan of Treatment Not on file documented as of this encounter Visit Diagnoses Not on filedocumented in this encounter Care Teams Board Finisher Relationship Specialty Start Date End Date Kevin Linares MD PCP - General Family Practice 04/29/21 12/30/21 Dick German MD [address] [place] [address] PCP - General Family Practice 12/31/21 01/17/23 Kevin Linares MD [address] [facility] [address] [place] [address] [place] [id number] PCP - General Family Practice 01/18/23 Shila Cruz MD [address] [place] [address] Consulting Physician Neurology 01/05/22 documented as of this encounter
--- OUTSIDE RECORDS SUMMARY | 2025-02-24 10:26 | XMS_ITS | Clinical Summary ---
Author Organization 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 Gender Identity Not on file Sexual Orientation Not on file Obstetrics History Last Filed Vital Signs Vital Sign Reading Time Taken Comments Blood Pressure 123/81 08/02/2023 7:37 AM FOREIGN SERVICE OFFICER Pulse 56 08/02/2023 7:37 AM FOREIGN SERVICE OFFICER Temperature 36.5 C (97.7 F) 08/02/2023 7:37 AM FOREIGN SERVICE OFFICER Respiratory Rate 18 07/05/2021 12:32 PM FOREIGN SERVICE OFFICER Oxygen Saturation 100% 08/02/2023 7:37 AM FOREIGN SERVICE OFFICER Inhaled Oxygen Concentration - - Weight 57.2 kg (126 lb) 06/26/2024 9:00 AM FOREIGN SERVICE OFFICER Height 162.6 cm (5' 4) 06/26/2024 9:00 AM FOREIGN SERVICE OFFICER Body Mass Index 21.63 06/26/2024 9:00 AM FOREIGN SERVICE OFFICER Plan of Treatment Health Maintenance Due Date [...] ID:Not on file Type:MEDICARE RISK OTHER Address: [address] [facility] Advance Directives For more information, please contact: [phone] * Full Code (Latest Code Status on File) Date Activated Date Inactivated Comments 03/20/2021 12:37 PM 03/21/2021 4:31 PM Care Teams Car Wash Attendant Relationship Specialty Start Date End Date Kevin Linares MD [facility] [address] [address] PCP - General Family Practice 01/18/23 Shila Cruz MD Consulting Physician Neurology 01/05/22
[2025-02-24 11:46] LABS: Vitamin B12 523.0 pg/mL (239-931)
--- NOTE | 2025-02-24 12:09 | P.NEURO_ITS ---
Neurology EEG Report General Information Date of Study: 02/24/25 TEST electroencephalogram DIAGNOSIS history of seizure disorder CONDITION OF RECORDING neurodiagnostic lab EEG NUMBER [id number] CLINICAL HISTORY 64-year-old with history of seizure disorder. Before the spells he feels disoriented and dizzy and during the spells he falls and sometimes loses consciousness. EEG DESCRIPTION During wakefulness the background activity consists of posterior dominant alpha rhythm at 10 hertz with an amplitude of 20-40 microvolts which appears well- formed and reactive to eye opening. Anteriorly low amplitude mixed frequency activity was seen. Patient did not progress to stage 2 sleep however during drowsiness attenuation of background activity was seen. Hyperventilation not performed. Forty symptom was performed during which no significant abnormal background changes were seen. No appreciable driving response was noted. IMPRESSION This is a normal EEG obtained during awake and drowsy states.
[2025-02-26 13:08] LABS: Immunoglobulin A, Qn 102 mg/dL (87-352); Immunoglobulin G, Qn 1084 mg/dL (586-1602); Immunoglobulin M, Qn 76 mg/dL (26-217)
== END 2025-02-24 09:31 | disposition home or self-care (01) ==
PROVIDERS: PCP Family Medicine; Visit Provider Psychiatry & Neurology Neurology
DX: G40.919 Epilepsy, unspecified, intractable, without status epilepticus (principal); F10.10 Alcohol abuse, uncomplicated
CPT/HCPCS: 36415; 80177; 82607; 82746; 82784; 83090; 86334; 95816